=== PATIENT | female | born 1940 | race Caucasian/White ===

== ENCOUNTER → 2017-07-17 | Outpatient (CLI) | payer MEDICARE, OTHER ==
[~2017-07-17] MED LIST: BENTYL 10 MG CA10 M1 PO; LOPRESSOR50 PO; NORCO 5-325 TA1 EAC1 PO; OMEPRAZOLE 20 M20 M1 PO; PILOCARPINE HCL5 M1 PO; VITAMIN D2000 UNIT PO
== END ==
LOC: M.ULTRA 06-27 14:13 → M.RAD 07-12 13:00
DX: R92.8 Other abnormal and inconclusive findings on diagnostic imaging of breast (principal); N63.32 Unspecified lump in axillary tail of the left breast

== ENCOUNTER → 2017-09-04 | Outpatient (CLI) | payer MEDICARE, OTHER | LOC: M.RAD 08-28 16:00 | DX: M81.0 Age-related osteoporosis without current pathological fracture (principal); N91.2 Amenorrhea, unspecified; Z78.0 Asymptomatic menopausal state ==

== ENCOUNTER → 2018-01-23 | Outpatient (CLI) | payer MEDICARE | LOC: M.RAD 13:12 | DX: Z12.31 Encounter for screening mammogram for malignant neoplasm of breast (principal) ==

== ENCOUNTER → 2019-02-04 | Outpatient (CLI) | payer MEDICARE, OTHER | LOC: M.RAD 01-23 14:00 | DX: Z12.31 Encounter for screening mammogram for malignant neoplasm of breast (principal) ==

== ENCOUNTER → 2019-09-09 | Outpatient (CLI) | payer MEDICARE, OTHER | LOC: M.RAD 14:30 | DX: M81.0 Age-related osteoporosis without current pathological fracture (principal); M85.88 Other specified disorders of bone density and structure, other site ==

== ENCOUNTER → 2020-01-27 | Outpatient (CLI) | payer MEDICARE, OTHER | LOC: M.RAD 13:19 | PROVIDERS: ATTEND Obstetrics & Gynecology | DX: Z12.31 Encounter for screening mammogram for malignant neoplasm of breast (principal) ==

== ENCOUNTER 2020-02-29 01:05 | Inpatient (IN) | payer MEDICARE, OTHER ==
[2020-02-29] VITALS (7 sets, daily range): BP systolic 112–153; BP diastolic 53–67
[~2020-02-29] VITALS: Ht 160 cm; Wt 87.5 kg
--- NOTE | ~2020-02-29 | PROC ---
[address] [address] PROCEDURE REPORT Name: ANH ELDRIDGE Room: [address] IN M.R.#: [id number] Admission: 02/29/20 Attend Phys: Zaire Bobby, Discharge: Date of : 40 Report #: [id number] THIS REPORT FOR: cc: Clay Vora MD, Steven E. MD ~ [facility],Medical Records Staff For GI report, please see the Provation report in Perceptive 7 content. By: [id number] Records Staff [facility] /[place]
[2020-02-29 01:42] LABS: ABSOLUTE LYMPHOCYTES 0.4 thou/uL (0.8-5.3); ABSOLUTE MONOCYTES 0.1 thou/uL (0.0-1.2); BASOPHILS 0.5 %; EOSINOPHILS 0.1 %; HEMATOCRIT 37.8 % (37.0-47.0); HEMOGLOBIN 13.2 gm/dL (12.0-15.0); LYMPHOCYTES 15.1 %; MCH 30.6 pg (26.0-34.0); MCHC 34.8 g/dL (28.0-37.0); MCV 87.9 fL (80.0-100.0); MPV 8.7 fl. (7.2-11.1); NUCLEATED RBCS 0 /100WBC; PLATELET COUNT* 153 thou/uL (150-400); POLYS 79.3 %; RDW-CV 13.4 % (10.5-14.5); WBC 2.5 thou/uL (4.0-11.0)
[2020-02-29 01:46] LABS: CALCIUM 7.8 mg/dL (8.5-10.1); CREATININE 1.6 mg/dL (0.6-1.3); POTASSIUM 4.2 mmol/L (3.5-5.1)
[2020-02-29 01:47] LABS: PROTIME 10.8 Seconds (9.20-11.50)
[2020-02-29] MEDS ORDERED: BUSPIRONE HCL10 MG PO (01:53)
[2020-02-29] MEDS ORDERED: SYNTHROID112 MC1 PO (01:53)
[2020-02-29 01:56] LABS: ALBUMIN 2.7 g/dL (3.4-5.0); MAGNESIUM 1.9 mg/dL (1.8-2.4); TOTAL BILIRUBIN 0.4 mg/dL (<0.1-1.0); TOTAL PROTEIN 6.7 g/dL (6.4-8.2)
[2020-02-29 05:05] LABS: INFLUENZA A ANTIGEN Negative (Negative); INFLUENZA B ANTIGEN Negative (Negative)
[2020-02-29] MEDS ORDERED: VOLTAREN 50MG T50 MG PO (06:40)
--- NOTE | 2020-02-29 12:49 | EKG ---
[place] [address] ELECTROCARDIOGRAM REPORT Name: ANH ELDRIDGE Room: [address] ADM IN .R.#: [id number] Admission: 02/29/20 Attend Phys: Kimberly Gordon, Discharge: Date of : 40 Date of Service: 02/29/20 0109 Report #: [id number] THIS REPORT FOR: //name// [facility] ED Test Date: 2020-02-29 Test Time: 01:09:14 Pat Name: ANH ELDRIDGE Department: Room: [facility] Gender: F Entry Level: [place] : 1940 Requested By: Nisreen Perez Order Number: [id number] MD: Naveed Isaac Measurements Intervals [place] Rate: 130 P: 59 PA: 169 QRS: -11 QRSD: 81 T: -9 QT: 286 QTc: 421 Interpretive Statements Sinus tachycardia RSR' in V1 or V2, right VCD or RVH Inferior infarct, old No previous ECG available for comparison Electronically Signed On 02-29-2020 12:49:37 WHEEL TRUING MACHINE TENDER by Naveed Isaac [email or web address] <ELECTRONICALLY SIGNED> By: Naveed Isaac MD, FACC 02/29/20 1249 Naveed Isaac MD, FAC /EPI
[2020-03-01] VITALS: BP 115/48
[2020-03-01 04:00] VITALS: BP 115/45
[2020-03-01 05:41] LABS: ABSOLUTE LYMPHOCYTES 0.4 thou/uL (0.8-5.3); ABSOLUTE MONOCYTES 0.2 thou/uL (0.0-1.2); BASOPHILS 0.2 %; HEMATOCRIT 30.8 % (37.0-47.0); LYMPHOCYTES 10.7 %; MCH 30.4 pg (26.0-34.0); MCV 86.9 fL (80.0-100.0); MONOCYTES 5.3 %; MPV 8.3 fl. (7.2-11.1); NUCLEATED RBCS 0 /100WBC; PLATELET COUNT* 148 thou/uL (150-400); POLYS 83.8 %; RBC 3.55 mil/uL (4.20-5.00); RDW-CV 13.6 % (10.5-14.5); WBC 3.6 thou/uL (4.0-11.0)
[2020-03-01 05:54] LABS: HEMOGLOBIN 10.8 gm/dL (12.0-15.0)
[2020-03-01 06:06] LABS: ALBUMIN 2.2 g/dL (3.4-5.0); CALCIUM 7.3 mg/dL (8.5-10.1); CREATININE 1.5 mg/dL (0.6-1.3); TOTAL BILIRUBIN 0.4 mg/dL (<0.1-1.0); TOTAL PROTEIN 5.7 g/dL (6.4-8.2)
[2020-03-01 08:15] VITALS: BP 116/45
[2020-03-01 13:08] VITALS: BP 107/46
--- NOTE | 2020-03-01 15:23 | 2DMMODE ---
[place] [address] 2 D/M-MODE ECHOCARDIOGRAM Name: ANH ELDRIDGE Room: [address] IN [facility]#: [id number] Admission: 02/29/20 Attend Phys: Kimberly Gordon, Discharge: Date of : 40 Date of Service: 03/01/20 1523 Report #: [id number] THIS REPORT FOR: cc: Clay Vora MD, Steven E. MD Blick,Uriel Bob MD [facility] ~ APPROVED REPORT Study performed: 03/01/2020 14:20:21 EXAM: Comprehensive 2D, Doppler, and color-flow Echocardiogram Patient Location: In-Patient Room #: [facility] Status: routine BSA: 1.66 HR: 71 bpm BP: 107/46 mmHg Rhythm: NSR Other Information Study Quality: Good Indications Dyspnea 2D Dimensions IVSd: 9.91 (7-11mm) LVOT Diam: 20.27 (18-24mm) LVDd: 43.08 mm PWd: 8.47 (7-11mm) Ascending Ao: 31.50 (22-36mm) LVDs: 23.02 (25-40mm) Aortic Root: 30.36 mm Volumes Left Atrial Volume (Systole) LA ESV Index: 24.20 mL/m2 Aortic Valve AoV Peak Donn.: 1.49 m/s AO Peak Gr.: 8.89 mmHg LVOT Max P.53 mmHg AO Mean Gr.: 4.94 mmHg LVOT Mean P.80 mmHg LVOT Max V: 1.18 m/s AO V2 VTI: 31.53 cm LVOT Mean V: 0.77 m/s HALIE (VTI): 2.78 cm2 LVOT V1 VTI: 27.17 [place] [address] 2 D/M-MODE ECHOCARDIOGRAM Name: ANH ELDRIDGE Room: [address] IN [facility]#: [id number] Admission: 02/29/20 Attend Phys: Kimberly Gordon, Discharge: Date of : 40 Date of Service: 03/01/20 1523 Report #: [id number] Mitral Valve E/A Ratio: 1.10 MV Decel. Time: 256.92 ms MV E Max Donn.: 1.32 m/s MV PHT: 74.51 ms MVA (PHT): 2.95 cm2 TDI E/Lateral E': 16.50 E/Medial E': 13.20 Medial E' Donn.: 0.10 m/s Lateral E' Donn.: 0.08 m/s Pulmonary Valve PV Peak Donn.: 0.94 m/s PV Peak Gr.: 3.52 mmHg Left Ventricle The left ventricle is normal size. There is normal LV segmental wall motion. There is normal left ventricular wall thickness. Left ventricular systolic function is normal. The left ventricular ejection fraction is within the normal range. LVEF is 60-65%. The left ventricular diastolic function is normal. Right Ventricle The right ventricle is normal size. The right ventricular systolic function is normal. Atria The left atrium size is normal. The right atrium size is normal. Aortic Valve Mild aortic valve sclerosis. Trace aortic regurgitation. There is no aortic valvular stenosis. Mitral Valve The mitral valve is normal in structure. There is no mitral valve regurgitation noted. No evidence of mitral valve stenosis. Tricuspid Valve The tricuspid valve is normal in structure. There is no tricuspid valve regurgitation noted. Pulmonic Valve Pulmonic valve is not well visualized. [place] [address] 2 D/M-MODE ECHOCARDIOGRAM Name: ANH ELDRIDGE Room: [address]#: [id number] Admission: 02/29/20 Attend Phys: Kimberly Gordon, Discharge: Date of : 40 Date of Service: 03/01/20 1523 Report #: [id number] Great Vessels The aortic root is normal in size. IVC is normal in size and collapses >50% with inspiration. Pericardium There is no pericardial effusion. <Conclusion> Left ventricular systolic function is normal. The left ventricular ejection fraction is within the normal range. <ELECTRONICALLY SIGNED> By: Uriel Segura MD, [facility] 03/01/20 1523 1523 1523 Uriel Segura MD, FACC /INF
[2020-03-01 16:59] VITALS: BP 114/54; BP 116/48
[2020-03-01 17:39] LABS: CALCIUM 7.4 mg/dL (8.5-10.1); CREATININE 1.5 mg/dL (0.6-1.3); MAGNESIUM 2.5 mg/dL (1.8-2.4); POTASSIUM 3.8 mmol/L (3.5-5.1)
[2020-03-01 20:00] VITALS: BP 129/55
[2020-03-02] VITALS: BP 140/55
[2020-03-02 04:00] VITALS: BP 116/43
[2020-03-02 06:15] LABS: HEMATOCRIT 30.2 % (37.0-47.0); HEMOGLOBIN 10.3 gm/dL (12.0-15.0); MCH 30.5 pg (26.0-34.0); MCHC 34.2 g/dL (28.0-37.0); MCV 89.1 fL (80.0-100.0); MPV 8.3 fl. (7.2-11.1); RBC 3.39 mil/uL (4.20-5.00); RDW-CV 13.7 % (10.5-14.5); WBC 7.8 thou/uL (4.0-11.0)
[2020-03-02 06:19] LABS: CALCIUM 7.3 mg/dL (8.5-10.1); CREATININE 1.6 mg/dL (0.6-1.3); MAGNESIUM 2.3 mg/dL (1.8-2.4); POTASSIUM 3.7 mmol/L (3.5-5.1)
[2020-03-02 08:00] VITALS: BP 122/50
[2020-03-02 12:00] VITALS: BP 122/38
[2020-03-02 16:00] VITALS: BP 138/45
[2020-03-02 17:18] LABS: BE -6.9 mmol/L (-2 to +3); pH 7.404 (7.340-7.450)
[2020-03-02 20:53] VITALS: BP 155/40
[2020-03-03] VITALS (27 sets, daily range): BP systolic 73–186; BP diastolic 36–89
[2020-03-03 06:19] LABS: HEMATOCRIT 31.6 % (37.0-47.0); HEMOGLOBIN 10.7 gm/dL (12.0-15.0); MCH 30.2 pg (26.0-34.0); MCHC 33.8 g/dL (28.0-37.0); MCV 89.2 fL (80.0-100.0); MPV 8.5 fl. (7.2-11.1); RBC 3.54 mil/uL (4.20-5.00); RDW-CV 13.6 % (10.5-14.5); WBC 9.2 thou/uL (4.0-11.0)
[2020-03-03 06:21] LABS: HEMATOCRIT 31.7 % (37.0-47.0); HEMOGLOBIN 10.7 gm/dL (12.0-15.0); MCH 30.3 pg (26.0-34.0); MCHC 33.9 g/dL (28.0-37.0); MCV 89.2 fL (80.0-100.0); MPV 8.5 fl. (7.2-11.1); NUCLEATED RBCS 0 /100WBC; PLATELET COUNT* 177 thou/uL (150-400); RBC 3.55 mil/uL (4.20-5.00); RDW-CV 13.7 % (10.5-14.5); WBC 9.3 thou/uL (4.0-11.0)
[2020-03-03 06:44] LABS: ALBUMIN 2.3 g/dL (3.4-5.0); CALCIUM 7.5 mg/dL (8.5-10.1); CREATININE 1.6 mg/dL (0.6-1.3); MAGNESIUM 2.4 mg/dL (1.8-2.4); POTASSIUM 3.4 mmol/L (3.5-5.1); TOTAL BILIRUBIN 0.6 mg/dL (<0.1-1.0); TOTAL PROTEIN 5.7 g/dL (6.4-8.2)
[2020-03-03 08:32] LABS: ABSOLUTE LYMPHOCYTES 0.4 thou/uL (0.8-5.3); ABSOLUTE MONOCYTES 0.6 thou/uL (0.0-1.2); ABSOLUTE NEUTROPHILS 8.4 thou/uL (1.6-8.1); ATYPICAL MONONUCLEARS 1 %; LARGE PLATELETS OCCASIONAL; METAMYELOCYTES 2 %; PLATELET ESTIMATE ADEQUATE
[2020-03-03 08:33] LABS: TOXIC GRANULATION 1+
[2020-03-03 13:18] LABS: BE -21.3 mmol/L (-2 to +3); PO2 68.3 mmHg (75.0-100.0)
[2020-03-03 13:20] LABS: PCO2 50.5 mmHg (35.0-45.0); pH 6.939 (7.340-7.450)
[2020-03-03 14:12] LABS: BE -13.2 mmol/L (-2 to +3); PCO2 34.6 mmHg (35.0-45.0)
[2020-03-03 14:16] LABS: pH 7.213 (7.340-7.450)
[2020-03-03 14:34] LABS: CALCIUM 6.6 mg/dL (8.5-10.1); CREATININE 1.9 mg/dL (0.6-1.3); POTASSIUM 3.4 mmol/L (3.5-5.1)
[2020-03-03 14:41] LABS: APTT 41.5 Seconds (25.0-31.3); INR 1.4
[2020-03-03 14:49] LABS: HEMATOCRIT 27.9 % (37.0-47.0); HEMOGLOBIN 9.3 gm/dL (12.0-15.0); MCH 30.1 pg (26.0-34.0); MCHC 33.4 g/dL (28.0-37.0); MCV 90.1 fL (80.0-100.0); MPV 8.7 fl. (7.2-11.1); NUCLEATED RBCS 0 /100WBC; PLATELET COUNT* 233 thou/uL (150-400); RBC 3.09 mil/uL (4.20-5.00); RDW-CV 14.2 % (10.5-14.5); WBC 22.4 thou/uL (4.0-11.0)
[2020-03-03 14:50] LABS: ALBUMIN 1.6 g/dL (3.4-5.0); MAGNESIUM 2.4 mg/dL (1.8-2.4); PHOSPHORUS* 8.9 mg/dL (2.5-4.9); TOTAL BILIRUBIN 0.8 mg/dL (<0.1-1.0)
[2020-03-03 15:43] LABS: ABSOLUTE LYMPHOCYTES 1.3 thou/uL (0.8-5.3); ABSOLUTE MONOCYTES 0.9 thou/uL (0.0-1.2); ABSOLUTE NEUTROPHILS 20.2 thou/uL (1.6-8.1)
[2020-03-03 15:44] LABS: LARGE PLATELETS OCCASIONAL; PLATELET ESTIMATE ADEQUATE
[2020-03-03 15:45] LABS: ANISOCYTOSIS 1+
--- NOTE | 2020-03-03 17:05 | CARD ---
[address] [address] CARDIAC CATH REPORT Name: ANH ELDRIDGE Room: [address] IN [facility]#: [id number] Admission: 02/29/20 Attend Phys: Zaire Bobby, Discharge: Date of : 40 Report #: [id number] THIS REPORT FOR: cc: Clay Vora MD, Steven E. MD ~ Uriel Segura MD [facility] APPROVED REPORT Study performed: 03/03/2020 13:33:21 Patient Details Patient Status: In-Patient Room #: The patient is a 80 year-old female Event Personnel Uriel Segura Rn Concurrent Review, Romina Dawn RN RN, Dennis Rankin ALUMINUM POLISHERDEANDRA NarvaezubRod Jessie RTR Monitor Procedures Performed Art Access - R femoral artery Scott Access - R femoral vein Left Heart Cath w/or w/o Coronaries MARKELL Revasc AMI Total/Sub Single CIRC MARKELL Place w/wo Plasty Single LAD Hemostasis-Sheaths Sutured in place A triple lumen venous catheter was inserted Indication Abnormal ECG, Arrhythmia, STEMI (>0 to less than or equal to 6 hours), Dyspnea, The patient was on a monitored bed being treated for COVID-19. She complained of dyspnea, and was noted to go into ventricular fibrillation on the monitor. Code Blue was called, and CPR initiated. The patient was intubated, and received 2 cardioversions. Normal sinus rhythm was restored. The patient was administered IV atropine, epinephrine, sodium bicarbinate, and amiodarone bolus. Post code ECG demonstrated inferior STEMI and the patient was taken urgently to the catheterization lab. Risk Factors Arterial Hypertension Admission/Lab Medications/Medications given during procedure Glycoprotein IllbIlla Inhibitors, Heparin Unfract., Lidocaine Subcut 14 ml, 0.9% Sodium Chloride IV 100 ml per hr, Dopamine IV 15 mcg per kg per min, Heparin IV 6000 units, Aggrastat IV , 0.9% Sodium Chloride IV 125 ml per hr6.4 [place] [address] CARDIAC CATH REPORT Name: ANH ELDRIDGE Room: [address]#: [id number] Admission: 02/29/20 Attend Phys: Zaire Bobby, Discharge: Date of : 40 Report #: [id number] Procedure Narrative The patient was brought emergently to the Cardiac Catheterization Laboratory and was prepped and draped in a sterile manner. The right femoral was infiltrated with 2% Lidocaine subcutaneous anesthesia. A Crandall 6 FR sheath was inserted into the right femoral artery. Coronary angiography was performed using coronary diagnostic catheters. The right coronary system was accessed and visualized with a Diagnostic 6 Fr JR 4 catheter. The left coronary system was accessed and visualized with a Diagnostic 6 Fr JL 4 catheter. The left ventricle was accessed and visualized with a Diagnostic 6 Fr Pigtail catheter. Left ventricular/Aortic Valve gradient assessed via catheter pullback. Left ventriculogram was performed in MENESES projection. The patient tolerated the procedure well and there were no complications associated with the procedure. There was no hematoma. Sheaths were sutured in place. Triple lumen venous catheter was placed in the right femoral vein. Intraoperative Conscious Sedation No Sedation Given. Case start was 13:54 and case end was 14:58. Fluoro Time: 9.6 minutes Dose: DAP 78029 cGycm2 1560 mGy Contrast Type and Amount: Visipaque 200 ml Coronary Angiography The patient's coronary anatomy is left dominant. Diagnostic Cath Left Main 0% stenosis LAD 40% proximal, 60% mid, and 80% distal stenosis OM3 70% ostail stenosis noted L PDA 100% acutely occluded with thrombus noted Right Coronary 0% stenosis Left Ventriculography The left ventricular ejection fraction is estimated to be 40-45%. Left ventricular wall motion abnormalities are present. There is 1+ mitral insufficiency. severe hypokinesis noted of the inferior wall Hemodynamics The aortic pressure is 96/38 mmHg with a mean of 64 mmHg. The left ventricular pressure is 84/10 mmHg with a mean of mmHg. The left ventricular end diastolic pressure is 17 mmHg. There was no gradient across the aortic valve upon pullback[place] [address] CARDIAC CATH REPORT Name: ANH ELDRIDGE Room: [address] IN [facility]#: [id number] Admission: 02/29/20 Attend Phys: Zaire Bobby, Discharge: Date of : 40 Report #: [id number] ventricle to the aorta revealed no gradient across the aortic valve. PCI Technique Lesion Anticoagulation was achieved with Heparin. bolus of iv aggrastat given Percutaneous coronary intervention was performed on the circumflex artery atrioventricular groove continuation segment. The lesion stenosis prior to intervention was 100% with ÁLVARO 0 flow. A 6FR XB 3.5 100CM Guide Catheter was used to engage the left ostium. A IG: BMW 190cm Interventional Guidewire was used to cross the lesion. BALLOON DILATION A Balloon catheter Mini Trek RX 2.0 X 8 was inserted and inflated up to 8.00atm for 7seconds. Repeat angiography revealed the following post-dilatation results: 70% stnosis. Additional Inflation: 14.00atm for 21seconds. STENT DEPLOYMENT A drug-eluting stent Prosperity RX Stent [id number] was inserted and inflated up to 8.00atm for 17seconds. Repeat angiography revealed the following post-stent deployment results: 0% stenosis. Additional Inflation: 11.00atm for 14seconds. Additional Inflation: 11.00atm for 45seconds. Final angiography reveals 0 % stenosis with ÁLVARO 3 flow. PCI Technique Lesion 2 Percutaneous Coronary Intervention was performed on the distal left anterior descending artery segment. Patient was preloaded with Aggrastat IV 6.4 ml. Percutaneous coronary intervention was performed on the distal left anterior descending artery segment. The lesion stenosis prior to intervention was 80% with ÁLVARO 3 flow. A 6FR XB 3.5 100CM Guide Catheter was used to engage the left ostium. A IG: BMW 190cm Interventional Guidewire was used to cross the lesion. Stent Deployment A drug-eluting stent Prosperity RX Stent 2.42X58lg was inserted and inflated up to 9.00atm for 14seconds. Repeat angiography revealed the following post-stent deployment results: 0% stenosis. Additional Inflation: 12.00atm for 16seconds. Final angiography reveals 0 % stenosis with ÁLVARO 3 [place] [address] CARDIAC CATH REPORT Name: ANH ELDRIDGE Room: [address]#: [id number] Admission: 02/29/20 Attend Phys: Zaire Bobby, Discharge: Date of : 40 Report #: [id number] 1. 80% stenosis of the distal LAD 2. acute occlusion of the distal dominant circumflex artery 3. LVEF 40-45% 4. successful placement of drug eluting stents in the distal circumflex artery and distal LAD Recommendations code ice protocol <ELECTRONICALLY SIGNED> By: Uriel Segura MD, FACC 03/03/20 1704 1704 1704Djossy Segura MD, FACC /INF
[2020-03-03 17:21] LABS: URINE BILIRUBIN NEGATIVE (Negative); URINE BLOOD 3+ (Negative); URINE CLARITY CLEAR; URINE COLOR YELLOW; URINE GLUCOSE-RANDOM 1+ (Negative); URINE KETONES NEGATIVE (Negative); URINE LEUKOCYTES NEGATIVE (Negative); URINE NITRITE NEGATIVE (Negative); URINE PROTEIN 2+ (Negative); URINE UROBILINOGEN 0.2 E.U./dl (0.2-1.0)
[2020-03-03 17:27] LABS: HYALINE CASTS 4-10 Moderate /LPF (None Seen); SQUAMOUS 0-3 Few /LPF (0-3)
[2020-03-03 17:28] LABS: AMORPHOUS URATES Few /LPF (None Seen); MUCUS None Seen strn/LPF (None Seen)
[2020-03-03 17:29] LABS: BACTERIA 1-9 Few /HPF (None Seen); URINE WBC 0-5 Rare /HPF (0-5)
[2020-03-03 20:17] LABS: ABSOLUTE BASOPHILS 0.1 thou/uL (0.0-0.2); ABSOLUTE LYMPHOCYTES 0.6 thou/uL (0.8-5.3); ABSOLUTE NEUTROPHILS 22.2 thou/uL (1.6-8.1); BASOPHILS 0.5 %; HEMATOCRIT 25.8 % (37.0-47.0); HEMOGLOBIN 8.5 gm/dL (12.0-15.0); LYMPHOCYTES 2.6 %; MCH 29.8 pg (26.0-34.0); MCHC 32.9 g/dL (28.0-37.0); MCV 90.5 fL (80.0-100.0); MONOCYTES 4.2 %; MPV 8.4 fl. (7.2-11.1); NUCLEATED RBCS 0 /100WBC; PLATELET COUNT* 228 thou/uL (150-400); POLYS 92.7 %; RBC 2.85 mil/uL (4.20-5.00); WBC 23.9 thou/uL (4.0-11.0)
[2020-03-03 20:27] LABS: BE -10.2 mmol/L (-2 to +3); PCO2 37.1 mmHg (35.0-45.0); PO2 76.2 mmHg (75.0-100.0)
[2020-03-03 20:32] LABS: pH 7.255 (7.340-7.450)
[2020-03-03 20:59] LABS: CALCIUM 7.1 mg/dL (8.5-10.1); CREATININE 1.9 mg/dL (0.6-1.3); MAGNESIUM 2.4 mg/dL (1.8-2.4)
[2020-03-03 21:01] LABS: POTASSIUM 2.6 mmol/L (3.5-5.1)
[2020-03-04] VITALS (37 sets, daily range): BP systolic 71–208; BP diastolic 35–87
[2020-03-04 03:11] LABS: MCH 30.4 pg (26.0-34.0); MCHC 34.4 g/dL (28.0-37.0); MCV 88.4 fL (80.0-100.0); MPV 8.2 fl. (7.2-11.1); RBC 2.24 mil/uL (4.20-5.00); RDW-CV 13.9 % (10.5-14.5); WBC 17.1 thou/uL (4.0-11.0)
[2020-03-04 03:14] LABS: APTT 51.5 Seconds (25.0-31.3); INR 1.6; PROTIME 16.1 Seconds (9.20-11.50)
[2020-03-04 03:15] LABS: ALBUMIN 1.5 g/dL (3.4-5.0); CALCIUM 6.5 mg/dL (8.5-10.1); CREATININE 1.9 mg/dL (0.6-1.3); MAGNESIUM 2.2 mg/dL (1.8-2.4); POTASSIUM 3.2 mmol/L (3.5-5.1); TOTAL BILIRUBIN 0.9 mg/dL (<0.1-1.0); TOTAL PROTEIN 3.6 g/dL (6.4-8.2)
[2020-03-04 04:58] LABS: TROPONIN-I LEVEL 36.92 ng/mL (<0.06)
[2020-03-04 05:04] LABS: HEMATOCRIT 19.8 % (37.0-47.0); HEMOGLOBIN 6.8 gm/dL (12.0-15.0)
[2020-03-04 07:52] LABS: BE -9.6 mmol/L (-2 to +3); PCO2 33.6 mmHg (35.0-45.0); PO2 68.4 mmHg (75.0-100.0)
[2020-03-04 07:57] LABS: pH 7.295 (7.340-7.450)
[2020-03-04 09:37] LABS: % SATURATION 19 % (20-39); IRON 17 ug/dL (50-175)
--- NOTE | 2020-03-04 12:38 | CON ---
[address] [address] CONSULTATION Name: ANH ELDRIDGE Room: [address] IN M.R.#: [id number] Admission: 02/29/20 Attend Phys: Zaire Bobby, Discharge: Date of : 40 Report #: [id number] THIS REPORT FOR: cc: Clay Vora MD, Steven E. MD ~ Guido Mendiola MD DATE OF SERVICE: 03/01/2020 CONSULT REQUESTED BY: Dr. Mello Stacy. INDICATION FOR CONSULTATION: Acute hypoxemic respiratory failure secondary to COVID-19. HISTORY OF PRESENT ILLNESS: An 80-year-old female with past medical history is as mentioned below, this does not include a history of long-term cardiac or respiratory disease. The patient's baseline creatinine is not available. The patient is now admitted with altered mental status, weakness, and difficulty breathing. The patient was noted to be hypoxemic on initial arrival, she was requiring 5 liters of oxygen to maintain O2 saturation in the low 90s. This improved to 2 liters initially, however subsequently the patient became more hypoxemic again. The patient currently is requiring 10 liters of oxygen via nasal cannula to maintain O2 saturation in the low 90s. She does remain short of breath. She also has had cough, but minimal sputum production. There is not much swelling of lower extremities. REVIEW OF SYSTEMS: The patient's review of systems for 12 points is negative except as mentioned above with the exception that the patient did report having had fever and chills. PAST MEDICAL HISTORY: Tonsillectomy, chronic back pain, cataract surgery. The patient is on metoprolol at home, indication is not known to me, it is possible she has a history of hypertension. The patient also is on levothyroxine for hypothyroidism. CURRENT MEDICATION LIST: In Handprint reviewed. HOME MEDICATIONS LIST: Also in Handprint reviewed. SOCIAL HISTORY: Lifetime nonsmoker. No known history of heavy alcohol use or illegal drug use. FAMILY HISTORY: There is no pertinent family history. PHYSICAL EXAMINATION: [place] [address] CONSULTATION Name: MILTON ELDRIDGEMARY Modi Room: [address]#: [id number] Admission: 02/29/20 Attend Phys: Zaire Bobby, Discharge: Date of : 40 Report #: [id number] GENERAL: She is alert, awake and oriented. VITAL SIGNS: Has a pulse of 66 and a blood pressure of 107/46. She is on 10 liters oxygen via nasal cannula, saturating 94%, respiratory rate is 16-18. She is afebrile at this time, did have a high-grade fever of 38.1 initially. HEENT: Head is normocephalic and atraumatic. NECK: Does not show raised JVP. CHEST: Breath sounds bilaterally equal, mildly decreased. No added sounds. HEART: Regular. There is no murmur. ABDOMEN: Soft and nontender. EXTREMITIES: Lower extremities show no edema and no calf tenderness. LABORATORY AND DIAGNOSTIC DATA: The patient's chest x-rays which does show worsening today compared with on admission, shows infiltrates bilaterally consistent with COVID-19 pneumonia. The patient's lab work, which does show elevation in creatinine to 1.6 initially and now 1.5 is in [facility] and this is reviewed. ASSESSMENT AND PLAN: 1. Acute hypoxemic respiratory failure secondary to COVID-19. Continue to titrate oxygen. Recommend BiPAP while asleep if able to tolerate. 2. COVID-19. The patient is on dexamethasone as well as remdesivir, I agree with the same. She has received 1 unit of convalescent plasma. I would also go ahead and give her 1 more unit. 3. Pulmonary infiltrates. She is on Zosyn. I will add doxycycline. This will cover for secondary bacterial infections. She remains on nebulized bronchodilators as well. 4. Acute renal failure. The patient's creatinine is elevated to 1.6 initially and then 1.5. We will repeat labs now, pending repeat labs, for now discontinued IV fluids considering increasing oxygen requirements and she will be getting some volume in the form of the convalescent plasma as well. We will reassess once the labs from this evening are available. Note that the patient's baseline creatinine is unknown. 5. Possible hypertension. The patient takes metoprolol at home, the indication is not known to me. It is possible that the patient has hypertension for which this may have been prescribed. 6. Deep venous thrombosis prophylaxis, on Lovenox. 7. Clostridium difficile prophylaxis, Florastor. Thanks for this consultation. <ELECTRONICALLY SIGNED> By: Guido Mendiola MD 03/04/20 1238 1647 [id number] Mendiola MD /nt
--- NOTE | 2020-03-04 13:04 | EKG ---
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: ARSENIO : 1940 Requested By: Uriel Segura Order Number: [id number] Reading MD: Uriel Segura Measurements Intervals [place] Rate: 117 P: 89 [place]: 152 QRS: 14 QRSD: 80 T: -43 QT: 355 QTc: 496 Interpretive Statements Sinus tachycardia Ventricular premature complex Inferior infarct, age indeterminate Compared to ECG 03/03/2020 15:37:05 Prolonged QT interval no longer present Myocardial infarct finding still present Electronically Signed On 03-04-2020 13:03:48 SAFE AND VAULT INSTALLER by Uriel Segura [email or web address] <ELECTRONICALLY SIGNED> By: Uriel Segura MD, FAC 03/04/20 1303 1050 1050 Uriel Segura MD, [facility] /EPI
--- NOTE | 2020-03-04 13:04 | CON ---
[address] [address] CONSULTATION Name: ANH ELDRIDGE Room: [address] IN M.R.#: [id number] Admission: 02/29/20 Attend Phys: Zaire Bobby, Discharge: Date of : 40 Report #: [id number] THIS REPORT FOR: cc: Clay Vora MD, Steven E. MD ~ Uriel Segura MD [facility] DATE OF SERVICE: 03/03/2020 CARDIOLOGY CONSULTATION HISTORY OF PRESENT ILLNESS: The patient is an 80-year-old white female who I was asked to see in the hospital today after she had a sudden cardiac arrest. The patient has no previous history of heart disease. She actually presented to [place] 3 days ago after being diagnosed with COVID-19. She has been confused, weak, and short of breath. She had no fever. She was admitted to the COVID units 3 days ago. Today, the patient was noted to have increasing shortness of breath. When the nurse walked back into the room, the patient was not breathing. A code blue was activated. On the monitor, the patient was in ventricular fibrillation. CPR was started. She required 2 cardioversions and returned to sinus rhythm. She was intubated by the code blue team. I was asked to see her for further evaluation and treatment. PAST MEDICAL HISTORY: She has had previous tonsillectomy, chronic back pain, cataract extraction, hypertension. MEDICATIONS: On admission included hydrocodone, metoprolol, Synthroid, buspirone, Voltaren. SOCIAL HISTORY: Nonsmoker. FAMILY HISTORY: Noncontributory. REVIEW OF SYSTEMS: No history of stroke, asthma, liver disease, kidney disease, cancer, chronic skin condition or psychiatric illness. PHYSICAL EXAMINATION: GENERAL: Revealed an elderly female lying in bed. She is unresponsive at this time. She is on the ventilator. VITAL SIGNS: Currently, blood pressure is ____, pulse is 60. She has been afebrile. HEENT: She is anicteric. Conjunctivae are pink. Mucous members moist. CHEST: Clear to auscultation. CARDIOVASCULAR: Regular rate and rhythm. No significant murmur. ABDOMEN: [place] [address] CONSULTATION Name: ANH ELDRIDGE Room: [address]#: [id number] Admission: 02/29/20 Attend Phys: Zaire Bobby, Discharge: Date of : 40 Report #: [id number] EXTREMITIES: Had no edema. SKIN: Cool and dry. NEUROLOGIC: She is unresponsive. The patient had an echocardiogram performed here 2 days ago on admission that showed normal left ventricular function, no valvular abnormalities. Her x-rays on admission, her portable chest x-ray showed bilateral infiltrates. Venous duplex scan of the legs showed no DVT. LABORATORY DATA: Sodium 139, BUN 37, creatinine 1.6. SGOT 66, SGPT 54. Troponin 0.06. BNP 2815. White blood cell count 9.3, hemoglobin 10.7. Her COVID antigen study was positive. IMPRESSION AND RECOMMENDATIONS: 1. Sudden cardiac arrest. Suspect secondary to respiratory insufficiency. We will obtain serial enzymes. 2. Respiratory failure. The patient has been intubated. Suspect secondary to COVID-19. 3. Chronic kidney disease. 4. Confusion. <ELECTRONICALLY SIGNED> By: Uriel Segura MD, [facility] 03/04/20 1304 1255 [id number] Segura MD, FAC /nt
[2020-03-04 14:08] LABS: HEMATOCRIT 31.6 % (37.0-47.0); HEMOGLOBIN 10.5 gm/dL (12.0-15.0)
--- NOTE | 2020-03-04 15:16 | EKG ---
[place] [address] ELECTROCARDIOGRAM REPORT Name: ELDRIDGEANH L Room: [address] ADM IN M.R.#: [id number] Admission: 02/29/20 Attend Phys: Zaire Merida Discharge: Date of : 40 Date of Service: 03/03/20 1223 Report #: [id number] THIS REPORT FOR: //name// [facility] Test Date: 2020-03-03 Test Time: 12:23:20 Pat Name: ANH ELDRIDGE Department: Room: [address] Gender: F Graduation Coach: UNKNOWN : 1940 Requested By: Uriel Segura Order Number: [id number] Magalis MD: Naveed Isaac Measurements Intervals [place] Rate: 58 P: 63 [place]: QRS: 92 QRSD: 131 T: 90 QT: 427 QTc: 420 Interpretive Statements AV block, complete (third degree) Nonspecific intraventricular conduction delay Junctional rhythm Inferior infarct, acute (RCA) Probable RV involvement, suggest recording right precordial leads Compared to ECG 02/29/2020 01:09:14 Intraventricular conduction delay now present Sinus tachycardia no longer present Right ventricular hypertrophy no longer present Myocardial infarct finding still present Electronically Signed On 03-04-2020 15:16:28 PROPULSION SYSTEMS ENGINEER by Naveed Isaac [email or web address] <ELECTRONICALLY SIGNED> By: Naveed Isaac MD, [facility] 03/04/20 1516 1223 1223 Naveed Isaac MD, FAC /EPI
--- NOTE | 2020-03-04 15:16 | EKG ---
[place] [address] ELECTROCARDIOGRAM REPORT Name: ELDRIDGEANH L Room: [address] ADM IN M.R.#: [id number] Admission: 02/29/20 Attend Phys: Zaire Merida Discharge: Date of : 40 Date of Service: 03/03/20 1224 Report #: [id number] THIS REPORT FOR: //name// [facility] Test Date: 2020-03-03 Test Time: 12:24:11 Pat Name: ANH ELDRIDGE Department: Room: [address] Gender: F Family Sociologist: UNKNOWN : 1940 Requested By: Uriel Segura Order Number: [id number] Magalis MD: Naveed Isaac Measurements Intervals [place] Rate: 61 P: 0 [place]: QRS: 104 QRSD: 140 T: 70 QT: 421 QTc: 424 Interpretive Statements Complete AV block with wide QRS complex Junctional rhythm Nonspecific intraventricular conduction delay Compared to ECG 03/03/2020 12:23:20 AV block, complete (third-degree) now present Myocardial infarct finding no longer present Electronically Signed On 03-04-2020 15:16:37 SAMPLE CASE PORTER by Naveed Isaac [email or web address] <ELECTRONICALLY SIGNED> By: Naveed Isaac MD, FACC 03/04/20 1516 1224 1224 Naveed Isaac MD, FACC /EPI
--- NOTE | 2020-03-04 15:17 | EKG ---
[place] [address] ELECTROCARDIOGRAM REPORT Name: ANH ELDRIDGE Room: [address] ADM IN M.R.#: [id number] Admission: 02/29/20 Attend Phys: Zaire Merida Discharge: Date of : 40 Date of Service: 03/03/20 1537 Report #: [id number] THIS REPORT FOR: //name// [facility] Test Date: 2020-03-03 Test Time: 15:37:05 Pat Name: ANH ELDRIDGE Department: Room: [address] Gender: F Interior Design Project Manager: UNKNOWN : 1940 Requested By: Uriel Segura Order Number: [id number] Magalis MD: Naveed Isaac Measurements Intervals [place] Rate: 107 P: 69 UT: 145 QRS: -7 QRSD: 93 T: -32 QT: 436 QTc: 582 Interpretive Statements Sinus tachycardia Abnormal R-wave progression, early transition Probable inferior infarct, recent Prolonged QT interval Compared to ECG 03/03/2020 12:24:11 Myocardial infarct finding now present Prolonged QT interval now present AV block, complete (third-degree) no longer present Intraventricular conduction delay no longer present Electronically Signed On 03-04-2020 15:16:50 STITCHING DEPARTMENT SUPERVISOR by Naveed Isaac [email or web address] <ELECTRONICALLY SIGNED> By: Naveed Isaac MD, [facility] 03/04/20 1516 1537 1537 Naveed Isaac MD, FAC /EPI
[2020-03-04 16:46] LABS: BE -10.5 mmol/L (-2 to +3); PO2 63.9 mmHg (75.0-100.0)
[2020-03-04 17:11] LABS: ALBUMIN 1.8 g/dL (3.4-5.0); CALCIUM 6.6 mg/dL (8.5-10.1); MAGNESIUM 2.1 mg/dL (1.8-2.4); POTASSIUM 3.1 mmol/L (3.5-5.1); TOTAL BILIRUBIN 1.4 mg/dL (<0.1-1.0); TOTAL PROTEIN 4.5 g/dL (6.4-8.2)
[2020-03-04 17:11] LABS: ABSOLUTE BASOPHILS 0.1 thou/uL (0.0-0.2); ABSOLUTE LYMPHOCYTES 0.6 thou/uL (0.8-5.3); ABSOLUTE MONOCYTES 0.3 thou/uL (0.0-1.2); ABSOLUTE NEUTROPHILS 18.8 thou/uL (1.6-8.1); BASOPHILS 0.3 %; HEMATOCRIT 28.9 % (37.0-47.0); HEMOGLOBIN 9.8 gm/dL (12.0-15.0); MCH 27.7 pg (26.0-34.0); MCHC 33.8 g/dL (28.0-37.0); MONOCYTES 1.6 %; MPV 8.1 fl. (7.2-11.1); NUCLEATED RBCS 0 /100WBC; PLATELET COUNT* 140 thou/uL (150-400); POLYS 95.1 %; RBC 3.53 mil/uL (4.20-5.00); RDW-CV 18.6 % (10.5-14.5); WBC 19.8 thou/uL (4.0-11.0)
--- NOTE | 2020-03-04 19:21 | CON ---
[address] [address] CONSULTATION Name: ANH ELDRIDGE Room: [address] ADM IN M.R.#: [id number] Admission: 02/29/20 Attend Phys: Zaire Bobby, Discharge: Date of : 40 Report #: [id number] THIS REPORT FOR: cc: Clay Vora MD, Steven E. MD ~ Conor Jauregui DO DATE OF SERVICE: 03/04/2020 Please note at the time of this dictation, the patient was seen and physically examined by myself. REASON FOR CONSULTATION: Questionable gastrointestinal bleed. HISTORY OF PRESENT ILLNESS: This is an 80-year-old female who presented to the Emergency Room with having a diagnosis of being positive for COVID, altered mental status, and weakness and having some difficulty in breathing. She was placed in the COVID unit and has progressively deteriorated she states over the last several days prior to admission, she did admit to running a fever. She had a cough with minimal production and had significant increase in shortness of air with any type of exertion. She denied any nausea, vomiting or any chest discomfort at this particular time. It was noted the patient did code in her room on 03/03, it was found that she had an acute WA. She was rushed to the clinical laboratory aide, in which 2 stents were placed at that particular time and then transported to the ICU where she is currently on a ventilator. Prior to her coding her hemoglobin was 9 and on admission, her BUN was 22. It was noted that the patient saw Dr. Trinidad back in 2006 had a colonoscopy that just showed diverticulosis. ALLERGIES: No known drug allergies. MEDICATIONS: From home include Lopressor, Synthroid, bupropion, Voltaren 50 mg daily. PAST MEDICAL HISTORY: Hypertension, hypothyroidism, and chronic back pain. PAST SURGICAL HISTORY: Tonsillectomy and cataract surgery. FAMILY HISTORY: Noncontributory. SOCIAL HISTORY: Denies alcohol, tobacco or illegal drug use. Please note all the above information was obtained from the nurse and from the patient's chart due to her inability to converse secondary to post-code, sedation [place] [address] CONSULTATION Name: ANH ELDRIDGE Room: [address] IN [facility]#: [id number] Admission: 02/29/20 Attend Phys: Zaire Bobby, Discharge: Date of : 40 Report #: [id number] REVIEW OF SYSTEMS: Twelve-point review of systems is essentially negative except what is mentioned in the HPI. PHYSICAL EXAMINATION: VITAL SIGNS: Temperature 32.4, pulse 118, respirations are 22, blood pressure 141/65. HEART: Tachycardic. LUNGS: Diminished. ABDOMEN: Soft, positive bowel sounds. Nurse states her bowel movement yesterday was soft and brown. LABORATORY DATA: Hemoglobin on admission was 9, she is down to 6.8 this morning, one day post-code, white count is 17.1, platelets are 154, BUN is 39, up from 22 on admission, creatinine is 1.9, GFR is 25. Troponin was 36.92. BNP was greater than 20,000. The patient is to be started on Plavix and aspirin when she is extubated, but currently not on any blood thinners. She did get Lovenox last evening, which has been discontinued now. IMPRESSION: 1. Anemia. 2. Status post code WA and currently code ICE. 3. Nonsteroidal anti-inflammatory drug use daily, Voltaren. 4. Congestive heart failure. 5. Positive COVID. 6. Chronic kidney disease. 7. Leukocytosis. PLAN: 1. We will monitor for any overt bleeding. 2. IV Protonix b.i.d. secondary to long-term NSAID use. 3. If noted overt bleeding in the setting of positive COVID we will consider appropriate endoscopic evaluation at that time. 4. We will continue to follow. Thank you for allowing us to participate in this patient's care. Please do not hesitate to call with any questions in regard to this consult. <ELECTRONICALLY SIGNED> By: Conor Jauregui DO 03/04/20 1921 1212 [id number] Jauregui DO /nt
[2020-03-05] VITALS (63 sets, daily range): BP systolic 64–184; BP diastolic 33–75
[2020-03-05 01:06] LABS: INR 1.6; PROTIME 16.1 Seconds (9.20-11.50)
[2020-03-05 01:36] LABS: HDL CHOLESTEROL 11 mg/dL (>40); TRIGLYCERIDE 67 mg/dL (<150); VLDL 13 mg/dL (<40)
[2020-03-05 03:20] LABS: CHOLESTEROL < 50 mg/dL (<200); LDL CHOLESTEROL 26 mg/dL (<100); TC:HDL 4.5 Ratio (Not establshd)
[2020-03-05 03:22] LABS: SERUM ASSESSMENT CLEAR
[2020-03-05 04:34] LABS: ABSOLUTE LYMPHOCYTES 0.3 thou/uL (0.8-5.3); ABSOLUTE MONOCYTES 0.3 thou/uL (0.0-1.2); ABSOLUTE NEUTROPHILS 15.1 thou/uL (1.6-8.1); BASOPHILS 0.3 %; HEMATOCRIT 22.5 % (37.0-47.0); LYMPHOCYTES 2.1 %; MCH 27.2 pg (26.0-34.0); MCHC 33.5 g/dL (28.0-37.0); MCV 81.3 fL (80.0-100.0); MONOCYTES 1.6 %; MPV 8.3 fl. (7.2-11.1); NUCLEATED RBCS 0 /100WBC; PLATELET COUNT* 97 thou/uL (150-400); RBC 2.77 mil/uL (4.20-5.00); RDW-CV 19.9 % (10.5-14.5); WBC 15.8 thou/uL (4.0-11.0)
[2020-03-05 04:59] LABS: HEMOGLOBIN 7.5 gm/dL (12.0-15.0)
[2020-03-05 08:20] LABS: ALBUMIN 2.3 g/dL (3.4-5.0); CALCIUM 7.2 mg/dL (8.5-10.1); CREATININE 2.1 mg/dL (0.6-1.3); MAGNESIUM 2.1 mg/dL (1.8-2.4); PHOSPHORUS* 1.3 mg/dL (2.5-4.9); POTASSIUM 4.8 mmol/L (3.5-5.1); TOTAL PROTEIN 4.3 g/dL (6.4-8.2)
--- NOTE | 2020-03-05 09:45 | CON ---
[address] [address] CONSULTATION Name: ANH ELDRIDGE Room: [address] IN .R.#: [id number] Admission: 02/29/20 Attend Phys: Zaire Bobby, Discharge: Date of : 40 Report #: [id number] THIS REPORT FOR: cc: Clay Vora MD, Steven E. MD ~ Angie Bear MD DATE OF SERVICE: 03/04/2020 NEPHROLOGY CONSULTATION CONSULTING PHYSICIAN: Dr. Bobby. REASON FOR NEPHROLOGY CONSULTATION: Acute kidney injury. REASON FOR ADMISSION: Shortness of breath. HISTORY OF PRESENT ILLNESS: This is an 80-year-old female with unknown baseline creatinine, came in with shortness of breath. She was diagnosed with COVID pneumonia and was being treated for that in the COVID unit. She became acutely short of breath yesterday. Monitor showed VFib. She underwent cardioversion x 2, CPR, was intubated with return of spontaneous circulation. She was found to have an inferior STEMI on her EKG after that, was taken to the laborer pipeline and 2 stents were placed, one in her distal circumflex and one in her LAD. She was transferred to the ICU after that. She is also hemodynamically unstable, requiring dopamine this morning. She was placed on code ICE protocol yesterday. Her creatinine was running 1.5 to 1.6 since admission, but went up to 1.9 yesterday and it has stayed stable. The patient has been making urine. Chest x-ray still shows bilateral pulmonary infiltrates. Her FiO2 is 45% and staying stable. She does take diclofenac at home and she was getting ibuprofen over here, but her last dose was on 02/28. She is currently on the ventilator and she started responding a little as per the patient's nurse. Overnight she had 350 mL of urine out. She was given a dose of Lasix this morning by Cardiology because of concern that she may be developing pulmonary edema. She is also getting treatment for COVID pneumonia in the form of dexamethasone and Pulmonary is involved. ALLERGIES: No known drug allergies. REVIEW OF SYSTEMS: Not able to obtain detailed review of systems because the patient is currently intubated and sedated. Please refer to history of present illness. HOME MEDICATIONS: Include Voltaren, hydrocodone, metoprolol, Synthroid, [place] [address] CONSULTATION Name: ANH ELDRIDGE Ly Room: [address]#: [id number] Admission: 02/29/20 Attend Phys: Zaire Bobby, Discharge: Date of : 40 Report #: [id number] PAST MEDICAL AND SURGICAL HISTORY: Includes tonsillectomy, chronic back pain, cataract, ____, hypertension. SOCIAL HISTORY: We note she is a nonsmoker. Rest of the social history could not be obtained from the patient. FAMILY HISTORY: Noncontributory in this 80-year-old female. PHYSICAL EXAMINATION: VITAL SIGNS: Blood pressure is currently 136/55, temperature was 33.4. She is on code ICE protocol, pulse rate is 119, respiratory rate is 27, pulse ox was 92% on 45% FiO2. GENERAL: She is currently intubated and sedated on code ICE protocol. HEAD AND EYES: Atraumatic, normocephalic. ET tube in place. NECK: No JVD. CHEST: Decreased breath sounds bilaterally. CARDIOVASCULAR: S1, S2 normal. No murmurs. ABDOMEN: Soft, nondistended. Bowel sounds decreased. EXTREMITIES: Lower extremities, there is no lower extremity edema. GENITOURINARY: She has a Barnhart catheter in place, which is draining clear yellow urine. LOWER EXTREMITIES: There is no edema. NEUROLOGICAL FUNCTION: She is currently sedated. PSYCHIATRIC: Unable to assess right now. LABORATORY DATA: WBC 17.1, which is down from 24,000; hemoglobin 6.8, which is down from 8.5. Sodium was 142, potassium was 3.2, CO2 is 21, BUN was 39, creatinine was 1.9, phosphorus was 8.9 and this was yesterday and most recent lactate was 5.4. His CK was 248 and other labs are reviewed. IMAGING: Renal ultrasound and chest x-ray, abdominal x-ray, venous Doppler study were reviewed. There was no evidence of DVT in lower extremities. ASSESSMENT: 1. Acute kidney injury on possible chronic kidney disease. Creatinine was running 1.5 to 1.6 during this admission and then went up to 1.9, likely due to acute tubular necrosis because of ventricular fibrillation arrest yesterday. As mentioned earlier, baseline creatinine is not known. She underwent coronary artery stenting, 2 stents were placed on 03/03/2020 so there is a high chance that she might develop contrast-induced nephropathy as well and we might see that on her labs tomorrow. Her UA showed 11-20 rbc's by high power field, but this was a catheterized specimen with 2+ protein. It should be repeated once her acute kidney injury gets better. She has a normal CPK [place] [address] CONSULTATION Name: ANH ELDRIDGE Room: [address] IN [facility]#: [id number] Admission: 02/29/20 Attend Phys: Zaire Bobby, Discharge: Date of : 40 Report #: [id number] ultrasound was normal. 2. Shock, likely septic shock at this point in the setting of COVID pneumonia and acute respiratory failure. She is getting IV fluids and she is on dopamine as per primary team. 3. Ventricular fibrillation arrest inferior wall STEMI. The patient was coded on 03/03/2020 and status post 2 stents in distal circumflex as well as LAD and Cardiology is following closely. Her last ejection fraction is 60-65% after her stenting. She is on code ICE protocol currently. 4. The patient does have a history of use of NSAIDs so she might be having underlying kidney dysfunction. 5. Hypokalemia, currently in hypothermic state, which could be contributing to it. 6. Combination of respiratory and metabolic acidosis, improving. PLAN: 1. COVID pneumonia has been treated by primary team. 2. Chest x-ray was reviewed and it showed more of pulmonary infiltrates rather than vascular congestion to me and she is making urine, I do not think she needs further diuretic use, but I will go ahead and decrease her IV fluids, which is half normal saline with 75 mg of sodium bicarbonate 275 mL an hour. 3. Try to keep her MAP around 65-70 and try to avoid nephrotoxic agents, follow labs closely. She is at high risk for contrast-induced nephropathy. 4. Follow phosphorus, which was high yesterday at 5.9. 5. Replace potassium cautiously because once she is warmed up potassium will rebound back. 6. Anemia. Hemoglobin has dropped from 10.7 couple of days ago to 6.8. She will probably need a blood transfusion, will defer to primary team. I am not sure where she is bleeding from. Check stool for occult blood. Thank you for this consultation. The patient is critically ill. We will continue to follow closely with you. I spent 40 minutes in critical care time was spent in chart review, placing orders and care coordination discussed the patient's nurse in detail. <ELECTRONICALLY SIGNED> By: Angie Bear MD 03/05/20 0945 0916 [id number] Bear MD /nt
--- NOTE | 2020-03-05 10:27 | EKG ---
[place] [address] ELECTROCARDIOGRAM REPORT Name: ELDRIDGEANH PEGUERO Room: [address] ADM IN M.R.#: [id number] Admission: 02/29/20 Attend Phys: Zaire Merida Discharge: Date of : 40 Date of Service: 03/05/20 0509 Report #: [id number] THIS REPORT FOR: //name// [facility] Test Date: 2020-03-05 Test Time: 05:09:21 Pat Name: ANH ELDRIDGE Department: Room: [address] Gender: F Automobile Rental Clerk: [id number] : 1940 Requested By: Uriel Segura Order Number: [id number] Reading MD: Uriel Segura Measurements Intervals [place] Rate: 150 P: 0 ND: 94 QRS: 35 QRSD: 96 T: 86 QT: 252 QTc: 398 Interpretive Statements Sinus tachycardia poor r wave progression Low voltage, precordial leads Repolarization abnormality, prob rate related Compared to ECG 03/04/2020 10:50:46 Low QRS voltage now present Early repolarization now present Ventricular premature complex(es) no longer present rate increased Electronically Signed On 03-05-2020 10:27:16 BACK END ARCHITECT by Uriel Segura [email or web address] <ELECTRONICALLY SIGNED> By: Uriel Segura MD, [facility] 03/05/20 1027 0509 0509 Uriel Segura MD, [facility] /EPI
[2020-03-05 10:38] LABS: BE -1.3 mmol/L (-2 to +3); PCO2 33.7 mmHg (35.0-45.0); pH 7.443 (7.340-7.450)
[2020-03-05 15:31] LABS: BE -3.1 mmol/L (-2 to +3); PCO2 34.6 mmHg (35.0-45.0); PO2 84.7 mmHg (75.0-100.0); pH 7.407 (7.340-7.450)
[2020-03-05 15:32] LABS: ABSOLUTE BASOPHILS 0.1 thou/uL (0.0-0.2); ABSOLUTE LYMPHOCYTES 0.4 thou/uL (0.8-5.3); ABSOLUTE MONOCYTES 0.3 thou/uL (0.0-1.2); ABSOLUTE NEUTROPHILS 20.8 thou/uL (1.6-8.1); BASOPHILS 0.3 %; LYMPHOCYTES 1.8 %; MCH 27.5 pg (26.0-34.0); MCHC 33.7 g/dL (28.0-37.0); MCV 81.7 fL (80.0-100.0); MONOCYTES 1.2 %; MPV 8.6 fl. (7.2-11.1); NUCLEATED RBCS 0 /100WBC; PLATELET COUNT* 89 thou/uL (150-400); POLYS 96.7 %; RBC 2.18 mil/uL (4.20-5.00); RDW-CV 20.3 % (10.5-14.5); WBC 21.5 thou/uL (4.0-11.0)
[2020-03-05 15:46] LABS: CALCIUM 6.8 mg/dL (8.5-10.1); CREATININE 2.3 mg/dL (0.6-1.3); MAGNESIUM 1.9 mg/dL (1.8-2.4); POTASSIUM 4.3 mmol/L (3.5-5.1)
[2020-03-05 15:51] LABS: HEMATOCRIT 17.8 % (37.0-47.0)
[2020-03-06] VITALS (32 sets, daily range): BP systolic 102–147; BP diastolic 37–56
[2020-03-06 01:56] LABS: ABSOLUTE BASOPHILS 0.1 thou/uL (0.0-0.2); ABSOLUTE LYMPHOCYTES 0.4 thou/uL (0.8-5.3); ABSOLUTE MONOCYTES 0.2 thou/uL (0.0-1.2); ABSOLUTE NEUTROPHILS 19.8 thou/uL (1.6-8.1); BASOPHILS 0.3 %; HEMATOCRIT 26.9 % (37.0-47.0); LYMPHOCYTES 1.9 %; MCH 28.1 pg (26.0-34.0); MCHC 33.7 g/dL (28.0-37.0); MCV 83.4 fL (80.0-100.0); MONOCYTES 0.8 %; NUCLEATED RBCS 0 /100WBC; PLATELET COUNT* 63 thou/uL (150-400); RBC 3.23 mil/uL (4.20-5.00); RDW-CV 17.9 % (10.5-14.5); WBC 20.4 thou/uL (4.0-11.0)
[2020-03-06 02:01] LABS: HEMOGLOBIN 9.1 gm/dL (12.0-15.0)
[2020-03-06 02:06] LABS: GLYCOHEMOGLOBIN (HGB A1C) 5.9 % (4.8-5.6)
[2020-03-06 02:10] LABS: ALBUMIN 2.4 g/dL (3.4-5.0); CALCIUM 6.8 mg/dL (8.5-10.1); CREATININE 2.4 mg/dL (0.6-1.3); TOTAL BILIRUBIN 2.1 mg/dL (<0.1-1.0); TOTAL PROTEIN 4.4 g/dL (6.4-8.2)
[2020-03-06 08:07] LABS: BE -3.8 mmol/L (-2 to +3); PCO2 34.6 mmHg (35.0-45.0); PO2 84.9 mmHg (75.0-100.0); pH 7.391 (7.340-7.450)
[2020-03-06 16:09] LABS: BE -2.8 mmol/L (-2 to +3); PCO2 39.4 mmHg (35.0-45.0); pH 7.369 (7.340-7.450)
[2020-03-06 16:14] LABS: PO2 52.7 mmHg (75.0-100.0)
[2020-03-06 16:36] LABS: HEMATOCRIT 26.1 % (37.0-47.0); HEMOGLOBIN 8.9 gm/dL (12.0-15.0); MCH 28.3 pg (26.0-34.0); MCV 83.2 fL (80.0-100.0); MPV 9.3 fl. (7.2-11.1); RBC 3.13 mil/uL (4.20-5.00); RDW-CV 18.5 % (10.5-14.5); WBC 21.9 thou/uL (4.0-11.0)
[2020-03-07] VITALS (31 sets, daily range): BP systolic 90–150; BP diastolic 37–59
[2020-03-07 07:05] LABS: CALCIUM 7.5 mg/dL (8.5-10.1); CREATININE 2.7 mg/dL (0.6-1.3); PHOSPHORUS* 3.7 mg/dL (2.5-4.9); POTASSIUM 4.1 mmol/L (3.5-5.1)
[2020-03-07 08:12] LABS: BE -2.5 mmol/L (-2 to +3); PCO2 38.3 mmHg (35.0-45.0); pH 7.383 (7.340-7.450)
[2020-03-07 08:14] LABS: PO2 128.2 mmHg (75.0-100.0)
[2020-03-07 20:41] LABS: BE -3.8 mmol/L (-2 to +3); PCO2 41.9 mmHg (35.0-45.0); PO2 61.4 mmHg (75.0-100.0); pH 7.335 (7.340-7.450)
[2020-03-08] VITALS (33 sets, daily range): BP systolic 116–173; BP diastolic 47–83
[2020-03-08 03:26] LABS: HEMOGLOBIN 9.3 gm/dL (12.0-15.0); MCH 28.5 pg (26.0-34.0); MCHC 33.2 g/dL (28.0-37.0); MCV 85.9 fL (80.0-100.0); MPV 8.8 fl. (7.2-11.1); RBC 3.25 mil/uL (4.20-5.00); RDW-CV 19.5 % (10.5-14.5); WBC 30.8 thou/uL (4.0-11.0)
[2020-03-08 03:39] LABS: ALBUMIN 1.9 g/dL (3.4-5.0); CALCIUM 7.5 mg/dL (8.5-10.1); CREATININE 2.9 mg/dL (0.6-1.3); MAGNESIUM 2.1 mg/dL (1.8-2.4); POTASSIUM 3.6 mmol/L (3.5-5.1); TOTAL BILIRUBIN 1.1 mg/dL (<0.1-1.0); TOTAL PROTEIN 4.5 g/dL (6.4-8.2)
[2020-03-08 05:03] LABS: PCO2 41.2 mmHg (35.0-45.0); PO2 84.5 mmHg (75.0-100.0); pH 7.304 (7.340-7.450)
[2020-03-08 11:29] LABS: URINE BILIRUBIN NEGATIVE (Negative); URINE BLOOD 2+ (Negative); URINE CLARITY CLEAR; URINE COLOR YELLOW; URINE GLUCOSE-RANDOM NEGATIVE (Negative); URINE KETONES NEGATIVE (Negative); URINE LEUKOCYTES NEGATIVE (Negative); URINE NITRITE NEGATIVE (Negative); URINE PROTEIN NEGATIVE (Negative); URINE UROBILINOGEN 0.2 E.U./dl (0.2-1.0)
[2020-03-08 11:47] LABS: BACTERIA 1-9 Few /HPF (None Seen); MUCUS 0-3 Light strn/LPF (None Seen); SQUAMOUS 0-3 Few /LPF (0-3); URINE WBC 0-5 Rare /HPF (0-5)
[2020-03-08 11:48] LABS: CRYSTALS None Seen /LPF (None Seen); FINE GRANULAR CASTS 0-3 Few /LPF (None Seen); URINE RBC 3-10 Few /HPF (0-2)
--- NOTE | 2020-03-08 15:08 | EKG ---
[place] [address] ELECTROCARDIOGRAM REPORT Name: ANH ELDRIDGE Room: [address] ADM IN M.R.#: [id number] Admission: 02/29/20 Attend Phys: Zaire Merida Discharge: Date of : 40 Date of Service: 03/07/20 0126 Report #: [id number] THIS REPORT FOR: //name// [facility] Test Date: 2020-03-07 Test Time: 01:26:22 Pat Name: ANH ELDRIDGE Department: Room: [address] Gender: F Tapering Machine Operator: Maral THOMAS : 1940 Requested By: Zaire Bobby Order Number: [id number] Magalis MD: Foster Cohen Measurements Intervals [place] Rate: 118 P: [place]: QRS: 4 QRSD: 61 T: 133 QT: 324 QTc: 455 Interpretive Statements Atrial fibrillation Low voltage, precordial leads Consider inferior infarct Nonspecific T abnormalities, lateral leads Minimal ST elevation, anterolateral leads Baseline wander in lead(s) V4 Compared to ECG 03/07/2020 01:25:33 Myocardial infarct finding now present T-wave abnormality now present ST (T wave) deviation now present Ventricular premature complex(es) no longer present Early repolarization no longer present Electronically Signed On 03-08-2020 15:08:26 WIRELESS SALES MANAGER by Foster Cohen [email or web address] <ELECTRONICALLY SIGNED> By: Foster Cohen MD, [facility] 03/08/20 1508 0126 0126 Foster Cohen MD, [facility] /EPI
--- NOTE | 2020-03-08 15:08 | EKG ---
[place] [address] ELECTROCARDIOGRAM REPORT Name: ANH ELDRIDGE Room: [address] ADM IN M.R.#: [id number] Admission: 02/29/20 Attend Phys: Zaire Merida Discharge: Date of : 40 Date of Service: 03/07/20 0125 Report #: [id number] THIS REPORT FOR: //name// [facility] Test Date: 2020-03-07 Test Time: 01:25:33 Pat Name: ANH ELDRIDGE Department: Room: [address] Gender: F Ebay Reseller: Maral THOMAS : 1940 Requested By: Zaire Bobby Order Number: [id number] Magalis MD: Foster Cohen Measurements Intervals [place] Rate: 132 P: NC: QRS: 5 QRSD: 55 T: 144 QT: 312 QTc: 463 Interpretive Statements Atrial fibrillation Multiple ventricular premature complexes Low voltage, precordial leads Repolarization abnormality, prob rate related Baseline wander in lead(s) V4 Compared to ECG 03/05/2020 05:09:21 Ventricular premature complex(es) now present Sinus tachycardia no longer present Poor R-wave progression persists Electronically Signed On 03-08-2020 15:07:52 PLUMBER HELPER by Foster Cohen [email or web address] <ELECTRONICALLY SIGNED> By: Foster Cohen MD, [facility] 03/08/20 1507 4 012 Foster Cohen MD, [facility] /EPI
[2020-03-08 17:45] LABS: BE -5.4 mmol/L (-2 to +3); PCO2 41.7 mmHg (35.0-45.0); PO2 89.4 mmHg (75.0-100.0); pH 7.309 (7.340-7.450)
[2020-03-08 19:31] LABS: CALCIUM 7.4 mg/dL (8.5-10.1); CREATININE 2.9 mg/dL (0.6-1.3); MAGNESIUM 1.9 mg/dL (1.8-2.4); POTASSIUM 3.8 mmol/L (3.5-5.1)
[2020-03-09] VITALS (67 sets, daily range): BP systolic 99–145; BP diastolic 31–64
[2020-03-09 04:17] LABS: HEMATOCRIT 23.7 % (37.0-47.0); HEMOGLOBIN 7.9 gm/dL (12.0-15.0); MCHC 33.2 g/dL (28.0-37.0); MCV 87.2 fL (80.0-100.0); MPV 8.1 fl. (7.2-11.1); NUCLEATED RBCS 0 /100WBC; RBC 2.72 mil/uL (4.20-5.00); RDW-CV 19.5 % (10.5-14.5); WBC 25.5 thou/uL (4.0-11.0)
[2020-03-09 04:33] LABS: PLATELET COUNT* 47 thou/uL (150-400)
[2020-03-09 04:39] LABS: ALBUMIN 2.2 g/dL (3.4-5.0); CALCIUM 7.6 mg/dL (8.5-10.1); CREATININE 3.3 mg/dL (0.6-1.3); MAGNESIUM 2.1 mg/dL (1.8-2.4); POTASSIUM 3.4 mmol/L (3.5-5.1); TOTAL BILIRUBIN 0.9 mg/dL (<0.1-1.0); TOTAL PROTEIN 4.4 g/dL (6.4-8.2)
[2020-03-09 05:53] LABS: ABSOLUTE LYMPHOCYTES 0.5 thou/uL (0.8-5.3); PLATELET ESTIMATE DECREASED
[2020-03-09 05:54] LABS: BURR CELLS Occasional; OVALOCYTES 1+
[2020-03-09 05:56] LABS: ANISOCYTOSIS 1+; POIKILOCYTOSIS 1+; POLYCHROMASIA Occasional
[2020-03-09 08:11] LABS: PCO2 41.4 mmHg (35.0-45.0); PO2 93.8 mmHg (75.0-100.0)
[2020-03-09 08:13] LABS: pH 7.209 (7.340-7.450)
[2020-03-09 12:15] LABS: HEMATOCRIT 24.1 % (37.0-47.0); HEMOGLOBIN 7.8 gm/dL (12.0-15.0); MCH 28.3 pg (26.0-34.0); MCHC 32.1 g/dL (28.0-37.0); MCV 88.1 fL (80.0-100.0); MPV 8.2 fl. (7.2-11.1); RBC 2.74 mil/uL (4.20-5.00); RDW-CV 19.9 % (10.5-14.5); WBC 23.7 thou/uL (4.0-11.0)
[2020-03-09 12:27] LABS: CALCIUM 7.5 mg/dL (8.5-10.1); CREATININE 3.3 mg/dL (0.6-1.3); POTASSIUM 3.4 mmol/L (3.5-5.1)
[2020-03-09 17:29] LABS: BE -10.7 mmol/L (-2 to +3); PCO2 41.2 mmHg (35.0-45.0); PO2 98.5 mmHg (75.0-100.0)
[2020-03-09 17:40] LABS: pH 7.215 (7.340-7.450)
[2020-03-10] VITALS (47 sets, daily range): BP systolic 94–144; BP diastolic 37–53
[2020-03-10 02:46] LABS: ABSOLUTE BASOPHILS 0.1 thou/uL (0.0-0.2); ABSOLUTE LYMPHOCYTES 0.2 thou/uL (0.8-5.3); ABSOLUTE NEUTROPHILS 27.6 thou/uL (1.6-8.1); BASOPHILS 0.3 %; HEMATOCRIT 23.1 % (37.0-47.0); HEMOGLOBIN 7.6 gm/dL (12.0-15.0); LYMPHOCYTES 0.5 %; MCH 28.5 pg (26.0-34.0); MCHC 32.9 g/dL (28.0-37.0); MCV 86.6 fL (80.0-100.0); MONOCYTES 0.2 %; MPV 9.1 fl. (7.2-11.1); NUCLEATED RBCS 0 /100WBC; RBC 2.66 mil/uL (4.20-5.00); RDW-CV 19.7 % (10.5-14.5); WBC 27.8 thou/uL (4.0-11.0)
[2020-03-10 02:59] LABS: PLATELET COUNT* 49 thou/uL (150-400)
[2020-03-10 03:04] LABS: CALCIUM 7.7 mg/dL (8.5-10.1); CREATININE 3.6 mg/dL (0.6-1.3); MAGNESIUM 2.1 mg/dL (1.8-2.4); POTASSIUM 4.2 mmol/L (3.5-5.1); TOTAL BILIRUBIN 0.8 mg/dL (<0.1-1.0); TOTAL PROTEIN 4.4 g/dL (6.4-8.2)
[2020-03-10 08:19] LABS: BE -9.8 mmol/L (-2 to +3); PCO2 39.6 mmHg (35.0-45.0)
[2020-03-10 08:22] LABS: pH 7.245 (7.340-7.450)
[2020-03-10 14:33] LABS: BE -5.7 mmol/L (-2 to +3); PCO2 46.6 mmHg (35.0-45.0); PO2 65.5 mmHg (75.0-100.0)
[2020-03-10 14:35] LABS: pH 7.269 (7.340-7.450)
[2020-03-11] VITALS (48 sets, daily range): BP systolic 97–135; BP diastolic 40–85
[2020-03-11 00:35] LABS: BE -3.8 mmol/L (-2 to +3)
[2020-03-11 00:37] LABS: PCO2 54.4 mmHg (35.0-45.0); PO2 44.1 mmHg (75.0-100.0); pH 7.249 (7.340-7.450)
[2020-03-11 05:20] LABS: ABSOLUTE BASOPHILS 0.1 thou/uL (0.0-0.2); ABSOLUTE LYMPHOCYTES 0.2 thou/uL (0.8-5.3); ABSOLUTE MONOCYTES 0.2 thou/uL (0.0-1.2); ABSOLUTE NEUTROPHILS 27.9 thou/uL (1.6-8.1); BASOPHILS 0.3 %; LYMPHOCYTES 0.7 %; MCH 28.3 pg (26.0-34.0); MCHC 32.9 g/dL (28.0-37.0); MCV 86.1 fL (80.0-100.0); MONOCYTES 0.7 %; MPV 8.8 fl. (7.2-11.1); NUCLEATED RBCS 0 /100WBC; POLYS 98.3 %; RBC 2.05 mil/uL (4.20-5.00); RDW-CV 19.1 % (10.5-14.5); WBC 28.4 thou/uL (4.0-11.0)
[2020-03-11 05:40] LABS: ALBUMIN 2.6 g/dL (3.4-5.0); CALCIUM 7.4 mg/dL (8.5-10.1); CREATININE 2.9 mg/dL (0.6-1.3); MAGNESIUM 2.1 mg/dL (1.8-2.4); POTASSIUM 4.6 mmol/L (3.5-5.1); TOTAL BILIRUBIN 0.9 mg/dL (<0.1-1.0); TOTAL PROTEIN 4.7 g/dL (6.4-8.2)
[2020-03-11 05:51] LABS: HEMATOCRIT 17.7 % (37.0-47.0); HEMOGLOBIN 5.8 gm/dL (12.0-15.0)
[2020-03-11 05:52] LABS: PLATELET COUNT* 39 thou/uL (150-400)
[2020-03-11 08:21] LABS: BE -3.7 mmol/L (-2 to +3); PO2 70.7 mmHg (75.0-100.0)
[2020-03-11 08:23] LABS: PCO2 55.2 mmHg (35.0-45.0); pH 7.246 (7.340-7.450)
[2020-03-11 12:07] LABS: BE -5.2 mmol/L (-2 to +3); PCO2 46.8 mmHg (35.0-45.0); PO2 94.4 mmHg (75.0-100.0)
[2020-03-11 12:09] LABS: pH 7.273 (7.340-7.450)
--- NOTE | 2020-03-11 17:30 | EKG ---
[place] [address] ELECTROCARDIOGRAM REPORT Name: MILTON ELDRIDGEMARY Modi Room: [address] IN M.R.#: [id number] Admission: 02/29/20 Attend Phys: Zaire Merida Discharge: Date of : 40 Date of Service: 03/11/20 1003 Report #: [id number] THIS REPORT FOR: //name// [facility] Test Date: 2020-03-11 Test Time: 10:03:13 Pat Name: ANH ELDRIDGE Department: Room: [address] Gender: F Face Burler: : 1940 Requested By: Megan Kim Order Number: [id number] Magalis MD: Foster Cohen Measurements Intervals [place] Rate: 96 P: NE: QRS: 26 QRSD: 95 T: 259 QT: 310 QTc: 392 Interpretive Statements Atrial flutter Low voltage, precordial leads RSR' in V1 or V2, probably normal variant Borderline repolarization abnormality Borderline ST elevation, inferior leads Compared to ECG 03/07/2020 01:26:22 RSR' in V1 or V2 now present Atrial fibrillation no longer present Myocardial infarct finding no longer present T-wave abnormality no longer present ST (T wave) deviation still present Electronically Signed On 03-11-2020 17:30:34 PIPE FITTER SUPERVISOR by Foster Cohen [email or web address] <ELECTRONICALLY SIGNED> By: Foster Cohen MD, [facility] 03/11/20 1730 1003 1003 Foster Cohen MD, [facility] /EPI
[2020-03-11 17:37] LABS: ABSOLUTE BASOPHILS 0.2 thou/uL (0.0-0.2); ABSOLUTE LYMPHOCYTES 0.2 thou/uL (0.8-5.3); BASOPHILS 0.9 %; LYMPHOCYTES 0.8 %; MCH 29.5 pg (26.0-34.0); MCHC 33.5 g/dL (28.0-37.0); MCV 87.9 fL (80.0-100.0); MONOCYTES 0.1 %; MPV 8.3 fl. (7.2-11.1); NUCLEATED RBCS 0 /100WBC; PLATELET COUNT* 71 thou/uL (150-400); POLYS 98.2 %; RBC 2.84 mil/uL (4.20-5.00); RDW-CV 16.8 % (10.5-14.5); WBC 27.5 thou/uL (4.0-11.0)
[2020-03-11 17:39] LABS: HEMOGLOBIN 8.4 gm/dL (12.0-15.0)
[2020-03-11 18:34] LABS: PCO2 39.1 mmHg (35.0-45.0); pH 7.335 (7.340-7.450)
[2020-03-11 18:39] LABS: PO2 250.3 mmHg (75.0-100.0)
[2020-03-12] VITALS (42 sets, daily range): BP systolic 102–181; BP diastolic 34–50
[2020-03-12 02:07] LABS: HEPATITIS B SURFACE AG Negative (Negative)
[2020-03-12 06:29] LABS: HEMOGLOBIN 8.2 gm/dL (12.0-15.0); MCHC 32.9 g/dL (28.0-37.0); MCV 87.9 fL (80.0-100.0); MPV 9.4 fl. (7.2-11.1); NUCLEATED RBCS 0 /100WBC; PLATELET COUNT* 64 thou/uL (150-400); RBC 2.85 mil/uL (4.20-5.00); RDW-CV 16.6 % (10.5-14.5); WBC 30.7 thou/uL (4.0-11.0)
[2020-03-12 06:54] LABS: POTASSIUM 4.7 mmol/L (3.5-5.1)
[2020-03-12 07:08] LABS: ABSOLUTE LYMPHOCYTES 0.9 thou/uL (0.8-5.3); ABSOLUTE MONOCYTES 0.6 thou/uL (0.0-1.2); ABSOLUTE NEUTROPHILS 29.2 thou/uL (1.6-8.1); ATYPICAL LYMPHS 1 %; PLATELET ESTIMATE DECREASED
[2020-03-12 07:09] LABS: ALBUMIN 2.3 g/dL (3.4-5.0); CALCIUM 7.7 mg/dL (8.5-10.1); CREATININE 2.7 mg/dL (0.6-1.3); PHOSPHORUS* 5.8 mg/dL (2.5-4.9); TOTAL BILIRUBIN 0.9 mg/dL (<0.1-1.0); TOTAL PROTEIN 4.5 g/dL (6.4-8.2)
[2020-03-12 08:12] LABS: BE -0.3 mmol/L (-2 to +3); PCO2 45.1 mmHg (35.0-45.0); PO2 64.1 mmHg (75.0-100.0); pH 7.365 (7.340-7.450)
[2020-03-12 17:38] LABS: BE 0.9 mmol/L (-2 to +3); PCO2 44.6 mmHg (35.0-45.0); PO2 72.7 mmHg (75.0-100.0); pH 7.386 (7.340-7.450)
[2020-03-13] VITALS (59 sets, daily range): BP systolic 125–187; BP diastolic 38–62
[2020-03-13 06:02] LABS: HEMOGLOBIN 8.4 gm/dL (12.0-15.0); MCH 29.2 pg (26.0-34.0); MCHC 33.6 g/dL (28.0-37.0); MCV 86.9 fL (80.0-100.0); MPV 9.1 fl. (7.2-11.1); RBC 2.87 mil/uL (4.20-5.00); RDW-CV 16.5 % (10.5-14.5); WBC 26.3 thou/uL (4.0-11.0)
[2020-03-13 06:40] LABS: ALBUMIN 2.3 g/dL (3.4-5.0); CALCIUM 7.9 mg/dL (8.5-10.1); CREATININE 2.1 mg/dL (0.6-1.3); MAGNESIUM 2.2 mg/dL (1.8-2.4); PHOSPHORUS* 6.6 mg/dL (2.5-4.9); TOTAL BILIRUBIN 1.1 mg/dL (<0.1-1.0); TOTAL PROTEIN 4.5 g/dL (6.4-8.2)
[2020-03-13 10:49] LABS: BE 0.3 mmol/L (-2 to +3); PCO2 40.5 mmHg (35.0-45.0); PO2 62.1 mmHg (75.0-100.0); pH 7.408 (7.340-7.450)
[2020-03-14] VITALS (62 sets, daily range): BP systolic 71–174; BP diastolic 32–53
[2020-03-14 06:20] LABS: ABSOLUTE BASOPHILS 0.1 thou/uL (0.0-0.2); ABSOLUTE EOSINOPHILS 0.1 thou/uL (0.0-0.7); ABSOLUTE LYMPHOCYTES 0.2 thou/uL (0.8-5.3); ABSOLUTE MONOCYTES 0.1 thou/uL (0.0-1.2); ABSOLUTE NEUTROPHILS 26.7 thou/uL (1.6-8.1); BASOPHILS 0.2 %; EOSINOPHILS 0.2 %; HEMATOCRIT 24.4 % (37.0-47.0); HEMOGLOBIN 8.3 gm/dL (12.0-15.0); LYMPHOCYTES 0.6 %; MCH 29.4 pg (26.0-34.0); MCV 86.3 fL (80.0-100.0); MONOCYTES 0.4 %; MPV 10.2 fl. (7.2-11.1); NUCLEATED RBCS 0 /100WBC; PLATELET COUNT* 55 thou/uL (150-400); POLYS 98.6 %; RBC 2.83 mil/uL (4.20-5.00); RDW-CV 15.7 % (10.5-14.5)
[2020-03-14 06:52] LABS: CALCIUM 7.8 mg/dL (8.5-10.1); CREATININE 1.7 mg/dL (0.6-1.3); POTASSIUM 4.1 mmol/L (3.5-5.1)
[2020-03-14 08:20] LABS: PCO2 35.6 mmHg (35.0-45.0); pH 7.474 (7.340-7.450)
[2020-03-14 08:23] LABS: PO2 53.7 mmHg (75.0-100.0)
[2020-03-15] VITALS (30 sets, daily range): BP systolic 107–178; BP diastolic 38–67
[2020-03-15 06:12] LABS: HEMATOCRIT 25.3 % (37.0-47.0); HEMOGLOBIN 8.6 gm/dL (12.0-15.0); MCHC 33.9 g/dL (28.0-37.0); MCV 85.6 fL (80.0-100.0); MPV 9.4 fl. (7.2-11.1); NUCLEATED RBCS 0 /100WBC; RBC 2.96 mil/uL (4.20-5.00); RDW-CV 15.9 % (10.5-14.5); WBC 19.2 thou/uL (4.0-11.0)
[2020-03-15 06:18] LABS: PLATELET COUNT* 44 thou/uL (150-400)
[2020-03-15 06:32] LABS: ALBUMIN 2.2 g/dL (3.4-5.0); CALCIUM 7.8 mg/dL (8.5-10.1); CREATININE 2.4 mg/dL (0.6-1.3); MAGNESIUM 2.3 mg/dL (1.8-2.4); POTASSIUM 4.2 mmol/L (3.5-5.1); TOTAL PROTEIN 4.4 g/dL (6.4-8.2)
[2020-03-15 07:04] LABS: ABSOLUTE LYMPHOCYTES 0.6 thou/uL (0.8-5.3); ABSOLUTE MONOCYTES 0.2 thou/uL (0.0-1.2); ABSOLUTE NEUTROPHILS 18.4 thou/uL (1.6-8.1); ATYPICAL LYMPHS 1 %; PLATELET ESTIMATE DECREASED
[2020-03-15 08:38] LABS: BE -1.8 mmol/L (-2 to +3); PCO2 32.8 mmHg (35.0-45.0); PO2 69.3 mmHg (75.0-100.0); pH 7.439 (7.340-7.450)
--- NOTE | 2020-03-15 13:52 | 2DMMODE ---
[place] [address] 2 D/M-MODE ECHOCARDIOGRAM Name: ANH ELDRIDGE Room: [address] IN [facility]#: [id number] Admission: 02/29/20 Attend Phys: Zaire Merida Discharge: Date of : 40 Date of Service: 03/15/20 1352 Report #: [id number] THIS REPORT FOR: cc: Clay Vora MD,Clay Segura,Uriel Bob MD [facility] ~ APPROVED REPORT Study performed: 03/15/2020 11:24:13 EXAM: Comprehensive 2D, Doppler, and color-flow Echocardiogram Patient Location: In-Patient Room #: 005 Status: routine BSA: 1.84 HR: 70 bpm BP: 177/54 mmHg Rhythm: NSR Other Information Study Quality: Good Indications Acute ME 2D Dimensions IVSd: 10.02 (7-11mm) LVDd: 40.55 mm PWd: 9.96 (7-11mm) LVDs: 24.59 (25-40mm) Aortic Root: 32.67 mm Volumes Left Atrial Volume (Systole) LA ESV Index: 27.60 mL/m2 Pulmonary Valve PV Peak Donn.: 0.95 m/s PV Peak Gr.: 3.64 mmHg Left Ventricle The left ventricle is normal size. There is normal LV segmental wall motion. There is normal left ventricular wall thickness. Left ventricular systolic function is normal. The left ventricular ejection fraction is within the normal range. LVEF is 60-65%. [place] [address] 2 D/M-MODE ECHOCARDIOGRAM Name: ANH ELDRIDGE Room: [address] IN [facility]#: [id number] Admission: 02/29/20 Attend Phys: Zaire Merida Discharge: Date of : 40 Date of Service: 03/15/20 1352 Report #: [id number] left ventricular diastolic function is normal. Right Ventricle The right ventricle is normal size. The right ventricular systolic function is normal. Atria The left atrium size is normal. The right atrium size is normal. Aortic Valve The Aortic valve is sclerotic. Mild aortic regurgitation. There is no aortic valvular stenosis. Mitral Valve The mitral valve is normal in structure. Mild mitral regurgitation. No evidence of mitral valve stenosis. Tricuspid Valve The tricuspid valve is normal in structure. Unable to assess PA pressure. Trace tricuspid regurgitation. Pulmonic Valve The pulmonary valve is normal in structure. Trace pulmonic regurgitation. Great Vessels The aortic root is normal in size. IVC is normal in size and collapses >50% with inspiration. Pericardium There is no pericardial effusion. <Conclusion> LVEF is 60-65%. The Aortic valve is sclerotic. Mild aortic regurgitation. Mild mitral regurgitation. <ELECTRONICALLY SIGNED> By: Uriel Segura MD, [facility]ACC 03/15/20 135 135 135 Uriel Segura MD, [facility]ACC /INF
--- NOTE | 2020-03-15 14:15 | EKG ---
[place] [address] ELECTROCARDIOGRAM REPORT Name: ELDRIDGEANH L Room: [address] ADM IN M.R.#: [id number] Admission: 02/29/20 Attend Phys: Zaire Merida Discharge: Date of : 40 Date of Service: 03/15/20 0951 Report #: [id number] THIS REPORT FOR: //name// [facility] Test Date: 2020-03-15 Test Time: 09:51:25 Pat Name: ANH ELDRIDGE Department: Room: [address] Gender: F Karate Black Belt: ARSENIO TOWNSEND : 1940 Requested By: Uriel Segura Order Number: [id number] Reading MD: Uriel Segura Measurements Intervals [place] Rate: 70 P: 87 IL: 251 QRS: 0 QRSD: 76 T: -77 QT: 354 QTc: 382 Interpretive Statements Sinus rhythm Prolonged [place] interval Low voltage, precordial leads Nonspecific T abnormalities, diffuse leads Compared to ECG 03/11/2020 10:03:13 Atrial flutter no longer present Electronically Signed On 03-15-2020 14:14:[address] INTERPRETER by Uriel Segura [email or web address] <ELECTRONICALLY SIGNED> By: Uriel Segura MD, [facility] 03/15/20 1414 0951 Uriel Segura MD, [facility]AC /EPI
[2020-03-16] VITALS (31 sets, daily range): BP systolic 140–175; BP diastolic 43–57
[2020-03-16 05:12] LABS: CALCIUM 7.7 mg/dL (8.5-10.1); CREATININE 1.7 mg/dL (0.6-1.3); MAGNESIUM 2.1 mg/dL (1.8-2.4)
[2020-03-16 05:25] LABS: HEMATOCRIT 26.3 % (37.0-47.0); HEMOGLOBIN 8.9 gm/dL (12.0-15.0); MCHC 33.8 g/dL (28.0-37.0); MCV 85.7 fL (80.0-100.0); MPV 9.6 fl. (7.2-11.1); RBC 3.07 mil/uL (4.20-5.00); RDW-CV 15.9 % (10.5-14.5); WBC 25.7 thou/uL (4.0-11.0)
[2020-03-17] VITALS (22 sets, daily range): BP systolic 152–200; BP diastolic 43–98
[2020-03-17 05:20] LABS: HEMOGLOBIN 8.8 gm/dL (12.0-15.0); MCH 29.6 pg (26.0-34.0); MCHC 33.8 g/dL (28.0-37.0); MCV 87.4 fL (80.0-100.0); MPV 9.1 fl. (7.2-11.1); RBC 2.98 mil/uL (4.20-5.00); RDW-CV 15.7 % (10.5-14.5); WBC 26.4 thou/uL (4.0-11.0)
[2020-03-17 06:23] LABS: CALCIUM 6.8 mg/dL (8.5-10.1); MAGNESIUM 2.2 mg/dL (1.8-2.4); POTASSIUM 4.1 mmol/L (3.5-5.1)
[2020-03-17 08:29] LABS: BE 1.2 mmol/L (-2 to +3); PCO2 34.5 mmHg (35.0-45.0); PO2 61.9 mmHg (75.0-100.0)
--- NOTE | 2020-03-17 12:09 | CON ---
[address] [address] CONSULTATION Name: ANH ELDRIDGE Room: [address] IN .R.#: [id number] Admission: 02/29/20 Attend Phys: Zaire Bobby, Discharge: Date of : 40 Report #: [id number] THIS REPORT FOR: cc: Clay Vora MD, Steven E. MD ~ Meek Cabrera MD DATE OF SERVICE: 03/16/2020 HISTORY OF PRESENT ILLNESS: The patient is an 80-year-old female who was admitted to the hospital approximately 2 weeks back with COVID-induced respiratory failure and ARDS. The patient has been dependent on the vent since then. The GI service has been consulted for evaluation of PEG tube placement. The patient is sedated and intubated and most of the history has been obtained from her chart. PAST MEDICAL HISTORY: The patient has a prior medical history significant for hypothyroidism and hypertension. PAST SURGICAL HISTORY: Includes a tonsillectomy at age 5 and cataract surgery. SOCIAL HISTORY: The patient has no known history of smoking, alcohol or recreational drug use. FAMILY HISTORY: Not positive for any GI malignancies. REVIEW OF SYSTEMS: Unable to obtain review of systems because of the patient's mental status. PHYSICAL EXAMINATION: VITAL SIGNS: Temperature 35.7, pulse rate 67, respirations 15, blood pressure 136/64, pulse ox 91% on vent. GENERAL: The patient is sedated and intubated. HEENT: Pupils are reactive. Mucous membranes appear moist. LUNGS: Coarse bilateral, crepitations present. CARDIOVASCULAR: Rate and rhythm regular, S1, S2 present. ABDOMEN: Soft. There is no distention, guarding or rigidity. EXTREMITIES: Warm, 2+ pitting edema bilaterally. LABORATORY DATA: Hemoglobin 8.9, hematocrit 26.7, platelet count 43, WBC count 25.7. INR 1.6. Sodium 137, potassium 4.0, chloride 102, bicarbonate ____, BUN 36, creatinine 1.7. IMAGING: CT abdomen and pelvis performed on 03/06. This demonstrates bilateral pleural effusions, coronary artery disease, enhanced kidneys, [place] [address] CONSULTATION Name: ANH ELDRIDGE Room: [address] IN [facility]#: [id number] Admission: 02/29/20 Attend Phys: Zaire Bobby, Discharge: Date of : 40 Report #: [id number] prior cardiac catheterization, gallstone in the neck of the gallbladder, small to moderate amount of pelvic ascites. No focal retroperitoneal hematoma noted. ASSESSMENT AND PLAN: Pleasant 80-year-old female who presented with COVID pneumonia and is now vent dependent for more than 2 weeks. GI service consulted for PEG tube placement. The patient's platelet counts are a little under 50, will need to have platelets transportation design engineer. Otherwise, we can proceed with EGD and attempted PEG placement tomorrow. I have asked the nurse to hold the tube feeds at midnight and because of her low platelets, the patient is not currently on any chronic anticoagulation. Thank you for this consultation. <ELECTRONICALLY SIGNED> By: Meek Cabrera MD 03/17/20 1209 1540 [id number] Cabrera MD /nt
[2020-03-18] VITALS (53 sets, daily range): BP systolic 113–194; BP diastolic 28–61
[2020-03-18 05:13] LABS: HEMATOCRIT 24.1 % (37.0-47.0); HEMOGLOBIN 8.2 gm/dL (12.0-15.0); MCH 29.6 pg (26.0-34.0); MCHC 33.9 g/dL (28.0-37.0); MCV 87.2 fL (80.0-100.0); RBC 2.76 mil/uL (4.20-5.00); RDW-CV 16.2 % (10.5-14.5); WBC 24.4 thou/uL (4.0-11.0)
[2020-03-18 05:16] LABS: CALCIUM 7.5 mg/dL (8.5-10.1); CREATININE 2.2 mg/dL (0.6-1.3); MAGNESIUM 2.3 mg/dL (1.8-2.4); POTASSIUM 3.9 mmol/L (3.5-5.1)
[2020-03-18 14:17] LABS: BE -2.8 mmol/L (-2 to +3); PCO2 30.2 mmHg (35.0-45.0); PO2 65.4 mmHg (75.0-100.0); pH 7.452 (7.340-7.450)
[2020-03-19] VITALS (84 sets, daily range): BP systolic 95–203; BP diastolic 32–61
[2020-03-19 05:32] LABS: HEMATOCRIT 25.3 % (37.0-47.0); HEMOGLOBIN 8.6 gm/dL (12.0-15.0); MCH 29.5 pg (26.0-34.0); MCHC 33.9 g/dL (28.0-37.0); MCV 87.1 fL (80.0-100.0); RBC 2.9 mil/uL (4.20-5.00); RDW-CV 16.2 % (10.5-14.5); WBC 29.4 thou/uL (4.0-11.0)
[2020-03-19 05:45] LABS: ALBUMIN 2.1 g/dL (3.4-5.0); CALCIUM 7.5 mg/dL (8.5-10.1); CREATININE 1.5 mg/dL (0.6-1.3); POTASSIUM 4.2 mmol/L (3.5-5.1); TOTAL BILIRUBIN 1.3 mg/dL (<0.1-1.0); TOTAL PROTEIN 4.7 g/dL (6.4-8.2)
[2020-03-19 08:57] LABS: URINE BILIRUBIN NEGATIVE (Negative); URINE BLOOD 3+ (Negative); URINE CLARITY CLOUDY; URINE COLOR YELLOW; URINE GLUCOSE-RANDOM NEGATIVE (Negative); URINE KETONES NEGATIVE (Negative); URINE LEUKOCYTES-REFLEX TRACE (Negative); URINE NITRITE-REFLEX NEGATIVE (Negative); URINE PROTEIN 2+ (Negative); URINE UROBILINOGEN 0.2 E.U./dl (0.2-1.0)
[2020-03-19 09:13] LABS: SQUAMOUS 0-3 Few /LPF (0-3)
[2020-03-19 09:14] LABS: URINE RBC 3-10 Few /HPF (0-2); URINE WBC-REFLEX 0-5 Rare /HPF (0-5)
[2020-03-19 09:15] LABS: COARSE GRANULAR CASTS 4-10 Moderate /LPF (None Seen); CRYSTALS None Seen /LPF (None Seen); MUCUS None Seen strn/LPF (None Seen); YEAST-REFLEX Present (None Seen)
[2020-03-19 14:44] LABS: PCO2 27.4 mmHg (35.0-45.0); PO2 72.5 mmHg (75.0-100.0)
[2020-03-19 15:23] LABS: HEMOGLOBIN 6.7 gm/dL (12.0-15.0)
[2020-03-19 15:24] LABS: HEMATOCRIT 19.7 % (37.0-47.0)
[2020-03-19 22:37] LABS: HEMATOCRIT 27.3 % (37.0-47.0)
[2020-03-19 22:39] LABS: HEMOGLOBIN 9.2 gm/dL (12.0-15.0)
[2020-03-20] VITALS (76 sets, daily range): BP systolic 126–179; BP diastolic 40–77
[2020-03-20 04:52] LABS: BE 0.2 mmol/L (-2 to +3); PCO2 29.9 mmHg (35.0-45.0); pH 7.502 (7.340-7.450)
[2020-03-20 06:02] LABS: HEMATOCRIT 24.9 % (37.0-47.0); HEMOGLOBIN 8.6 gm/dL (12.0-15.0); MCH 30.7 pg (26.0-34.0); MCHC 34.5 g/dL (28.0-37.0); MCV 88.9 fL (80.0-100.0); MPV 8.4 fl. (7.2-11.1); NUCLEATED RBCS 0 /100WBC; RDW-CV 16.2 % (10.5-14.5); WBC 19.2 thou/uL (4.0-11.0)
[2020-03-20 06:06] LABS: PLATELET COUNT* 49 thou/uL (150-400)
[2020-03-20 06:28] LABS: ALBUMIN 1.9 g/dL (3.4-5.0); CALCIUM 7.4 mg/dL (8.5-10.1); CREATININE 1.9 mg/dL (0.6-1.3); POTASSIUM 4.2 mmol/L (3.5-5.1); TOTAL BILIRUBIN 0.7 mg/dL (<0.1-1.0); TOTAL PROTEIN 4.1 g/dL (6.4-8.2)
[2020-03-20 06:43] LABS: INR 1.2; PROTIME 13.1 Seconds (9.20-11.50)
[2020-03-20 07:15] LABS: ABSOLUTE MONOCYTES 0.2 thou/uL (0.0-1.2); PLATELET ESTIMATE DECREASED
[2020-03-20 07:16] LABS: BURR CELLS Occasional; HYPOCHROMASIA 1+
[2020-03-20 21:30] LABS: PCO2 32.6 mmHg (35.0-45.0); PO2 116.4 mmHg (75.0-100.0); pH 7.423 (7.340-7.450)
[2020-03-21] VITALS (67 sets, daily range): BP systolic 112–208; BP diastolic 45–79
[2020-03-21 05:16] LABS: BE -1.3 mmol/L (-2 to +3); PCO2 40.2 mmHg (35.0-45.0); PO2 85.3 mmHg (75.0-100.0); pH 7.387 (7.340-7.450)
[2020-03-21 06:16] LABS: ABSOLUTE BASOPHILS 0.1 thou/uL (0.0-0.2); ABSOLUTE LYMPHOCYTES 0.1 thou/uL (0.8-5.3); ABSOLUTE NEUTROPHILS 28.6 thou/uL (1.6-8.1); BASOPHILS 0.4 %; EOSINOPHILS 0.1 %; HEMATOCRIT 26.1 % (37.0-47.0); HEMOGLOBIN 8.7 gm/dL (12.0-15.0); LYMPHOCYTES 0.2 %; MCH 30.1 pg (26.0-34.0); MCHC 33.4 g/dL (28.0-37.0); MCV 90.2 fL (80.0-100.0); MONOCYTES 0.1 %; MPV 8.7 fl. (7.2-11.1); NUCLEATED RBCS 0 /100WBC; PLATELET COUNT* 59 thou/uL (150-400); POLYS 99.2 %; RBC 2.89 mil/uL (4.20-5.00); RDW-CV 16.4 % (10.5-14.5); WBC 28.9 thou/uL (4.0-11.0)
[2020-03-21 06:25] LABS: CALCIUM 7.5 mg/dL (8.5-10.1); CREATININE 1.5 mg/dL (0.6-1.3); MAGNESIUM 1.9 mg/dL (1.8-2.4); PHOSPHORUS* 4.3 mg/dL (2.5-4.9); POTASSIUM 3.8 mmol/L (3.5-5.1); TOTAL BILIRUBIN 0.9 mg/dL (<0.1-1.0); TOTAL PROTEIN 4.6 g/dL (6.4-8.2)
[2020-03-22] VITALS (11 sets, daily range): BP systolic 109–183; BP diastolic 42–77
[2020-03-22 11:04] LABS: BE -3.1 mmol/L (-2 to +3); PCO2 39.2 mmHg (35.0-45.0); pH 7.366 (7.340-7.450)
[2020-03-22 11:05] LABS: PO2 48.5 mmHg (75.0-100.0)
--- NOTE | 2020-03-22 14:06 | PATH ---
[address] [address] PATHOLOGY RPT PROCEDURE Name: MESHA ELDRIDGE Room: [address] IN .R.#: [id number] Admission: 02/29/20 Date of : 40 Discharge: Report #: [id number] Path Case #: [id number] [facility] Accession Number: [id number] . 01 Material submitted: . stomach - GASTRIC BIOPSY . 01 Clinician provided ICD-10: A41.89 U07..1 . 01 Clinical history: . SEPSIS, COVID-19 . 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 (BECKY/db; 03/22/2020) . Special stain: H. pylori immuno LBQ 03/22/2020 1059 Local . 02 Electronically signed: . Barron Rinaldi MD, Pathologist NPI- [id number] . 01 Gross description: . The specimen is received in formalin, labeled "Mesha Eldridge, gastric biopsy". Received are two segments of pale linton soft tissue ranging in size from 0.2 to 0.5 cm in maximum dimensions. The specimen is submitted entirely in cassette A1. (CAA; 03/18/2020) [facility] 03/18/2020 1343 Local . 02 Pathologist provided ICD-10: K29.40 . 02 CPT . 127972, [id number] Specimen Comment: A courtesy copy of this report has been sent to [phone] Specimen Comment: Report sent to Performed at: [address] [id number] MD Wisam Gonzalez MD Phone: [phone] Performed at: [address] [address] PATHOLOGY RPT PROCEDURE Name: MESHA ELDRIDGE Room: [address]#: [id number] Admission: 02/29/20 Date of : 40 Discharge: Report #: [id number] Path Case #: [id number] [address] [place] [address] [id number] MD Barron Rinaldi MD Phone: [phone]
[2020-03-22 14:52] LABS: CALCIUM 7.7 mg/dL (8.5-10.1); CREATININE 1.9 mg/dL (0.6-1.3); POTASSIUM 4.1 mmol/L (3.5-5.1)
[2020-03-23] VITALS (23 sets, daily range): BP systolic 93–150; BP diastolic 41–65
[2020-03-23 04:24] LABS: HEMATOCRIT 22.3 % (37.0-47.0); HEMOGLOBIN 7.5 gm/dL (12.0-15.0); MCH 30.5 pg (26.0-34.0); MCHC 33.7 g/dL (28.0-37.0); MCV 90.5 fL (80.0-100.0); MPV 8.8 fl. (7.2-11.1); NUCLEATED RBCS 0 /100WBC; PLATELET COUNT* 60 thou/uL (150-400); RBC 2.46 mil/uL (4.20-5.00); RDW-CV 15.8 % (10.5-14.5); WBC 18.6 thou/uL (4.0-11.0)
[2020-03-23 04:44] LABS: ALBUMIN 1.6 g/dL (3.4-5.0); CALCIUM 7.5 mg/dL (8.5-10.1); CREATININE 2.3 mg/dL (0.6-1.3); PHOSPHORUS* 6.3 mg/dL (2.5-4.9); POTASSIUM 4.4 mmol/L (3.5-5.1)
[2020-03-23 04:48] LABS: ALBUMIN 1.7 g/dL (3.4-5.0); CALCIUM 7.4 mg/dL (8.5-10.1); CREATININE 2.3 mg/dL (0.6-1.3); POTASSIUM 4.4 mmol/L (3.5-5.1); TOTAL BILIRUBIN 0.7 mg/dL (<0.1-1.0)
[2020-03-23 05:56] LABS: ABSOLUTE MONOCYTES 0.2 thou/uL (0.0-1.2); ABSOLUTE NEUTROPHILS 18.4 thou/uL (1.6-8.1); ANISOCYTOSIS 1+; PLATELET ESTIMATE DECREASED; POIKILOCYTOSIS 1+
[2020-03-23 05:57] LABS: BE -8.8 mmol/L (-2 to +3); PCO2 41.7 mmHg (35.0-45.0); PO2 99.9 mmHg (75.0-100.0)
[2020-03-23 06:02] LABS: pH 7.248 (7.340-7.450)
[2020-03-24] VITALS (79 sets, daily range): BP systolic 59–130; BP diastolic 19–114
[2020-03-24 05:10] LABS: ALBUMIN 2.1 g/dL (3.4-5.0); CALCIUM 7.2 mg/dL (8.5-10.1); CREATININE 2.8 mg/dL (0.6-1.3); POTASSIUM 4.9 mmol/L (3.5-5.1); TOTAL BILIRUBIN 0.7 mg/dL (<0.1-1.0); TOTAL PROTEIN 4.7 g/dL (6.4-8.2)
== END 2020-03-24 20:45 | DRG 853 ==
LOC: M.ERS 01:05 → M.ORTHSURG 03:53 → M.TBA-ER 03:53 → M.ICU 03:53 → M.ORTHSURG 05:41 → M.ICU 03-03 12:38
PROVIDERS: Emergency Medicine; Internal Medicine; Internal Medicine Cardiovascular Disease; Internal Medicine Critical Care Medicine; Internal Medicine Nephrology; Pediatrics; ADMIT Family Medicine; ATTEND Family Medicine
PROC: 30233N1 Transfusion of Nonautologous Red Blood Cells into Peripheral Vein, Percutaneous Approach (ICD-10-PCS; principal; 2020-02-29)
PROC: XW13325 Transfusion of Convalescent Plasma (Nonautologous) into Peripheral Vein, Percutaneous Approach, New Technology Group 5 (ICD-10-PCS; principal; 2020-02-29)
PROC: XW033E5 Introduction of Remdesivir Anti-infective into Peripheral Vein, Percutaneous Approach, New Technology Group 5 (ICD-10-PCS; 2020-02-29)
PROC: 5A0935A Assistance with Respiratory Ventilation, Less than 24 Consecutive Hours, High Flow/Velocity Cannula (ICD-10-PCS; 2020-03-01)
PROC: 5A0935A Assistance with Respiratory Ventilation, Less than 24 Consecutive Hours, High Flow/Velocity Cannula (ICD-10-PCS; 2020-03-02)
PROC: 05HF33Z Insertion of Infusion Device into Left Cephalic Vein, Percutaneous Approach (ICD-10-PCS; 2020-03-02)
PROC: B54NZZA Ultrasonography of Left Upper Extremity Veins, Guidance (ICD-10-PCS; 2020-03-02)
PROC: 5A09357 Assistance with Respiratory Ventilation, Less than 24 Consecutive Hours, Continuous Positive Airway Pressure (ICD-10-PCS; 2020-03-02)
PROC: 0BH17EZ Insertion of Endotracheal Airway into Trachea, Via Natural or Artificial Opening (ICD-10-PCS; 2020-03-03)
PROC: B211YZZ Fluoroscopy of Multiple Coronary Arteries using Other Contrast (ICD-10-PCS; 2020-03-03)
PROC: 5A12012 Performance of Cardiac Output, Single, Manual (ICD-10-PCS; 2020-03-03)
PROC: B215YZZ Fluoroscopy of Left Heart using Other Contrast (ICD-10-PCS; 2020-03-03)
PROC: 5A0935A Assistance with Respiratory Ventilation, Less than 24 Consecutive Hours, High Flow/Velocity Cannula (ICD-10-PCS; 2020-03-03)
PROC: 5A09357 Assistance with Respiratory Ventilation, Less than 24 Consecutive Hours, Continuous Positive Airway Pressure (ICD-10-PCS; 2020-03-03)
PROC: 4A023N7 Measurement of Cardiac Sampling and Pressure, Left Heart, Percutaneous Approach (ICD-10-PCS; 2020-03-03)
PROC: 027135Z Dilation of Coronary Artery, Two Arteries with Two Drug-eluting Intraluminal Devices, Percutaneous Approach (ICD-10-PCS; 2020-03-03)
PROC: 3E033PZ Introduction of Platelet Inhibitor into Peripheral Vein, Percutaneous Approach (ICD-10-PCS; 2020-03-03)
PROC: 5A2204Z Restoration of Cardiac Rhythm, Single (ICD-10-PCS; 2020-03-03)
PROC: 5A1955Z Respiratory Ventilation, Greater than 96 Consecutive Hours (ICD-10-PCS; 2020-03-03)
PROC: B548ZZA Ultrasonography of Superior Vena Cava, Guidance (ICD-10-PCS; 2020-03-04)
PROC: 02HV33Z Insertion of Infusion Device into Superior Vena Cava, Percutaneous Approach (ICD-10-PCS; 2020-03-04)
PROC: B548ZZA Ultrasonography of Superior Vena Cava, Guidance (ICD-10-PCS; 2020-03-10)
PROC: 02HV33Z Insertion of Infusion Device into Superior Vena Cava, Percutaneous Approach (ICD-10-PCS; 2020-03-10)
PROC: 30233R1 Transfusion of Nonautologous Platelets into Peripheral Vein, Percutaneous Approach (ICD-10-PCS; 2020-03-11)
PROC: 5A1D70Z Performance of Urinary Filtration, Intermittent, Less than 6 Hours Per Day (ICD-10-PCS; 2020-03-12)
PROC: 5A1D70Z Performance of Urinary Filtration, Intermittent, Less than 6 Hours Per Day (ICD-10-PCS; 2020-03-15)
PROC: 0DB68ZX Excision of Stomach, Via Natural or Artificial Opening Endoscopic, Diagnostic (ICD-10-PCS; 2020-03-17)
DX: A41.89 Other specified sepsis (principal); U07.1 COVID-19; J12.89 Other viral pneumonia; J80 Acute respiratory distress syndrome; J15.6 Pneumonia due to other Gram-negative bacteria; N17.0 Acute kidney failure with tubular necrosis; R65.21 Severe sepsis with septic shock; E43 Unspecified severe protein-calorie malnutrition; I21.19 ST elevation (STEMI) myocardial infarction involving other coronary artery of inferior wall; E87.1 Hypo-osmolality and hyponatremia; I48.20 Chronic atrial fibrillation, unspecified; D61.818 Other pancytopenia; E87.0 Hyperosmolality and hypernatremia; I13.0 Hypertensive heart and chronic kidney disease with heart failure and stage 1 through stage 4 chronic kidney disease, or unspecified chronic kidney disease; I44.2 Atrioventricular block, complete; I48.92 Unspecified atrial flutter; G93.40 Encephalopathy, unspecified; J98.11 Atelectasis; I49.01 Ventricular fibrillation; F41.9 Anxiety disorder, unspecified; K80.80 Other cholelithiasis without obstruction; E11.22 Type 2 diabetes mellitus with diabetic chronic kidney disease; G89.29 Other chronic pain; E87.6 Hypokalemia; I95.9 Hypotension, unspecified; K29.70 Gastritis, unspecified, without bleeding; I46.9 Cardiac arrest, cause unspecified; D69.6 Thrombocytopenia, unspecified; I25.5 Ischemic cardiomyopathy; E11.65 Type 2 diabetes mellitus with hyperglycemia; E03.9 Hypothyroidism, unspecified; D64.9 Anemia, unspecified; M54.9 Dorsalgia, unspecified; Z66 Do not resuscitate; Z68.34 Body mass index [BMI] 34.0-34.9, adult; Z98.49 Cataract extraction status, unspecified eye; Z79.899 Other long term (current) drug therapy